=== PATIENT | female | born 1955 | race Two or more races ===

== ENCOUNTER 2016-06-02 02:18 | Emergency (ER) | payer MEDICAID ==
[2016-06-02] MEDS ORDERED: ACETAMINOPHEN 325 MG TABLET PO ONE (04:33)
--- NOTE | 2016-06-02 06:31 | ER Document Report ---
ED Cardiac - General Mode of Arrival: Ambulatory Information source: Patient, Relative TRAVEL OUTSIDE OF THE [place] IN LAST 30 DAYS: No - HPI Patient complains to provider of: Chest pain Associated symptoms: Other - See above <BELL ASKEW - Last Filed: 06/02/16 07:18> <BETHLOGAN EnriquezDAVID - Last Filed: 06/02/16 09:26> - General Chief Complaint: Chest Pain > 30 Stated Complaint: chest pain Notes: Patient is a 60 year old Citizen Of [place] speaking female, with a past medical history including HTN, who presents to the emergency department via EMS complaining of chest pain. Daughter at bedside is translating. Per daughter, patient woke up around 0000 this morning with chest pain, numbness in her left hand, headache, blurry vision, and shortness of breath. Patient pulled her alarm chow, got out of bed and began walking when she "passed out". Patient's daughter reports patient woke up and saw no one was there and began walking to the door when she "passed out" again, a neighbor woke up to the alarm and called EMS. Patient reports this has happened 2x since she moved to the area about a year ago and has occurred previous to that as well. Patient has not been seen by a doctor for these episodes and states that this morning was much worse than the others. Patient states she has a family history of heart problems, her mother, grandmother, and father all had heart attacks and her brother had bypass surgery at around age 60. Patient reports she has not had any anxiety issues in the past. PCP: Dr. Baeza (BELL ASKEW) - Related Data Allergies/Adverse Reactions: No Known Allergies Allergy (Unverified 06/02/16 02:37) Past Medical History - General Information source: Patient - Social History Smoking Status: Never Smoker Frequency of alcohol use: None Drug Abuse: None Family History: Reviewed & Not Pertinent, CAD Patient has suicidal ideation: No Patient has homicidal ideation: No - Past Medical History Cardiac Medical History: Reports: Hx Hypertension Renal/ Medical History: Denies: Hx Peritoneal Dialysis GI Medical History: Reports: Hx Gastroesophageal Reflux Disease Past Surgical History: Reports: Hx Orthopedic Surgery - R hand and arm - Immunizations Hx Diphtheria, Pertussis, Tetanus Vaccination: No <BELL ASKEW - Last Filed: 06/02/16 07:18> Review of Systems - Review of Systems Constitutional: No symptoms reported EENT: See HPI, Blurred vision Cardiovascular: See HPI, Chest pain, Syncope Respiratory: See HPI, Short of breath Gastrointestinal: No symptoms reported Genitourinary: No symptoms reported Female Genitourinary: No symptoms reported Musculoskeletal: No symptoms reported Skin: No symptoms reported Hematologic/Lymphatic: No symptoms reported Neurological/Psychological: See HPI, Headaches, Numbness -: Yes All other systems reviewed and negative <BELL ASKEW - Last Filed: 06/02/16 07:18> Physical Exam - Vital signs Interpretation: Normal - General General appearance: Appears well, Alert, Anxious - HEENT Head: Normocephalic, Atraumatic Eyes: Normal Ears: Normal External canal: Normal Tympanic membrane: Normal Pharynx: Normal Neck: Supple. No: Carotid bruit - Respiratory Respiratory status: No respiratory distress Chest status: Nontender Breath sounds: Normal Chest palpation: Normal - Cardiovascular Rhythm: Regular Heart sounds: Normal auscultation Murmur: No - Abdominal Inspection: Obese Distension: No distension Bowel sounds: Normal Tenderness: Nontender Organomegaly: No organomegaly - Back Back: Normal, Nontender - Extremities General upper extremity: Normal inspection, Normal ROM, Normal strength. No: Edema General lower extremity: Normal inspection, Normal ROM, Normal strength. No: Edema - Neurological Neuro grossly intact: Yes Cognition: Normal Orientation: AAOx4 [place] Coma Scale Eye Opening: Spontaneous [place] Coma Scale Verbal: Oriented [place] Coma Scale Motor: Obeys Commands [place] Coma Scale Total: 15 Speech: Normal Motor strength normal: LUE, RUE, LLE, RLE - Psychological Associated symptoms: Normal affect, Anxious - Skin Skin Temperature: Warm Skin Moisture: Dry Skin Color: Normal <BELL ASKEW - Last Filed: 06/02/16 07:18> Course <BELL ASKEW - Last Filed: 06/02/16 07:18> - Laboratory Result Diagrams: 06/02/16 07:32 06/02/16 07:32 - EKG Interpretation by [facility] EKG shows normal: Sinus rhythm, [place], Intervals, QRS Complexes. abnormal: ST-T Waves - Borderline 20 abnormalities in anterior leads Rate: Normal - 68 Rhythm: NSR When compared to previous EKG there are: Previous EKG unavailable <DAVID CAMPOS - Last Filed: 06/02/16 09:26> - Re-evaluation Re-evalutation: 06/02/16 08:39 The patient's daughter reported that the Tylenol has worn off and her headache is beginning to return. She wants that if the patient does not receive some Motrin soon, the headache is going to get much worse as this is the pattern. ( DAVID CAMPOS) - Vital Signs Vital signs: Temp Pulse Resp BP Pulse Ox 97.5 F 62 20 148/84 H 97 06/02/16 08:35 06/02/16 08:35 06/02/16 04:30 06/02/16 08:35 06/02/16 08:35 (BELL ASKEW) (DAVID CAMPOS) - Laboratory Laboratory results interpreted by me: 06/02/16 06/02/16 07:32 07:32 RDW 14.3 H Cholesterol 206.16 H Discharge <BELL ASKEW - Last Filed: 06/02/16 07:18> <DAVID CAMPOS - Last Filed: 06/02/16 09:26> - Discharge Clinical Impression: Palpitations, Blurred vision, Anxiety Chest pain Qualifiers: Chest pain type: unspecified Qualified Code(s): R07.9 - Chest pain, unspecified Headache Qualifiers: Headache type: unspecified Headache chronicity pattern: acute headache Intractability: not intractable Qualified Code(s): R51 - Headache Condition: Stable Disposition: HOME, SELF-CARE Additional Instructions: Chest Pain of Unclear Cause: The exact cause of your chest pain isn't clear. Fortunately, there is no evidence of a dangerous medical condition. Further testing may be required to find the source of the pain. Most often, we find that this pain is coming from the chest wall -- the muscles or rib joints in the chest. But chest pain can come from the lung and lung lining, the esophagus, the heart valves or heart lining, and even the stomach or gallbladder. Rest. Eat lightly until the pain is gone. We may prescribe medicine for pain and inflammation. You should call the physician immediately if the pain radiates to the shoulder, jaw or arms; if you start to run a fever or develop a cough; or if you develop shortness of breath, or other new or alarming symptoms.I personally performed the services described in the documentation, reviewed and edited the documentation which was dictated to the scribe in my presence, and it accurately records my words and actions. Palpitations (Irregular/Rapid Heartrate): Irregular or rapid heartbeat is called "palpitation." To diagnose the cause of palpitation, we have to "catch it in the act" with an EKG. Sinus Tachycardia: This is a rapid (but NORMAL) rhythm that can be due to fever, pain, anxiety, lack of sleep, over-exertion, or drugs. Cold medications, caffeine, and diet pills are particularly likely to cause tachycardia. Usually , all that's required is rest, reassurance, and avoiding caffeine, alcohol, nicotine, and unnecessary medicines. Paroxysmal Atrial Tachycardia (PAT): This abnormally rapid heartbeat is caused by a "short circuit" in the electrical system of the heart. It is not dangerous, unless other heart disease is present. These attacks of PAT may occur occasionally for years. Medication is available for treatment. Paroxysmal Atrial Fibrillation or Atrial Flutter: This is irregular electrical activity in the upper heart chamber. These abnormal rhythms often occur with valve disease or in hearts damaged by hardening of the arteries. These rhythms usually require further testing, for example a cardiac echo. Premature Beats: Extra beats occur more commonly after caffeine, nicotine , alcohol, cold pills, diet pills. Emotional stress or fatigue also provoke them. Extra beats are only dangerous when heart disease is present. They usually need no treatment. If they're frequent, or if evidence of heart disease develops, medication can be given to suppress them. If we were unable to "catch" the palpitations on EKG, you should try to get an EKG immediately if the symptoms begin again. Contact the physician at once if you develop persistent lightheadedness, shortness of breath, chest pain , or swelling of the ankles. Headache: The physician does not feel that the headache you are experiencing has a serious underlying cause. Most headaches are due to emotional stress, with resultant muscle tension (tension headache). Occasionally, headaches are secondary to changes in the blood vessels of the scalp (vascular headache and migraine headache). Sometimes, a headache is the first symptom of another developing illness, such as a viral infection. You have no evidence of stroke, bleeding, meningitis, or other serious cause of your headache. The treatment of headaches varies with the severity and cause of the pain. Not all headaches need pain shots. In fact, there is evidence that using narcotics for headaches may make them worse in the long run. The physician will determine the therapy that's in your best interest. If you develop a fever, if the headache is different from any you've previously experienced, or if the headache progressively worsens, then call your physician at once or go to the emergency room. Anxiety: The physician feels that some of your health problems are being caused by anxiety. Anxiety affects your health in many ways. Anxiety alone can cause palpitations, sweats, chest pains, abdominal pains, shortness of breath, and headaches. It contributes to ulcer disease, high blood pressure, irritable bowel syndrome, and has been shown to cause flare-ups of many other diseases. Anxiety is not a simple disorder to treat. If the anxiety is due to recent life stresses, you may simply need time to "work through" the changes. If the anxiety is due to an underlying unhappiness with yourself or due to psychiatric disturbance, professional help will be needed. Your physician can refer you for further help if needed. Anti-anxiety medication is occasionally given if the stress is acute or if you are having trouble sleeping. Chronic or frequent use of these medications is not a good idea because the body becomes reliant on it, preventing you from dealing with life's normal stresses. THERE IS NO CLEAR EXPLANATION FOR YOUR CHEST PAIN, BUT THE EKG IS NORMAL AND THE HEART ENZYMES ARE NORMAL. YOUR CHOLESTEROL IS BORDERLINE ELEVATED. TAKE TYLENOL AND MOTRIN FOR YOUR HEADACHE TODAY IF NEEDED. REST TODAY. BE SURE TO TAKE ALL OF YOUR REGULAR MEDICATIONS TODAY. FOLLOW UP WITH DR. BAEZA TOMORROW FOR RECHECK. RETURN TO THE EMERGENCY ROOM IF ANY NEW OR WORSENING SYMPTOMS. Referrals: SHARRI BAEZA MD [Primary Care Provider] - 06/03/16 Scribe Attestation: 06/02/16 09:26 I personally performed the services described in the documentation, reviewed and edited the documentation which was dictated to the scribe in my presence, and it accurately records my words and actions. (DAVID CAMPOS) Scribe Documentation - Scribe Written by Betsey:: betsey Szymanski, 06/02/16, 0702 acting as scribe for :: Beth <BELL ASKEW - Last Filed: 06/02/16 07:18>
[2016-06-02 07:56] LABS: ABSOLUTE MONOCYTES (AUTO) 0.4 10^3/uL (0.1-1.4); ABSOLUTE NEUT (AUTO) 3.9 10^3/uL (1.7-8.2); BASOPHILS % (AUTO) 0.5 % (0-2); EOSINOPHILS % (AUTO) 0.6 % (0-6); HEMATOCRIT 40.1 % (36.0-47.0); HEMOGLOBIN 13.1 g/dL (12.0-15.5); HGB HCT DIFFERENCE -0.8; LYMPHOCYTES % (AUTO) 31.7 % (13-45); MEAN CORPUSCULAR HEMOGLOBIN 27.8 pg (27.0-33.4); MEAN CORPUSCULAR HGB CONC 32.7 g/dL (32.0-36.0); MEAN CORPUSCULAR VOLUME 85 fl (80-97); RED BLOOD COUNT 4.72 10^6/uL (3.72-5.28); RED CELL DISTRIBUTION WIDTH 14.3 % (11.5-14.0); SEGMENTED NEUTROPHILS % (AUTO) 60.2 % (42-78); WHITE BLOOD COUNT 6.4 10^3/uL (4.0-10.5)
[2016-06-02 08:14] LABS: ALANINE AMINOTRANSFERASE 41 U/L (9-52); ALKALINE PHOSPHATASE 112 U/L (38-126); ANION GAP 12 (5-19); ASPARTATE AMINO TRANSFERASE 35 U/L (14-36); BILIRUBIN,TOTAL 0.5 mg/dL (0.2-1.3); BLOOD UREA NITROGEN 15 mg/dL (7-20); CALCIUM 9.5 mg/dL (8.4-10.2); CARBON DIOXIDE 27 mmol/L (22-30); CHLORIDE 104 mmol/L (98-107); CHOLESTEROL 206.16 mg/dL (0-200); CREATINE KINASE 60 U/L (30-135); GLUCOSE 106 mg/dL (75-110); POTASSIUM 4.3 mmol/L (3.6-5.0); SODIUM 143.1 mmol/L (137-145); TOTAL PROTEIN 7.4 g/dL (6.3-8.2); TRIGLYCERIDES 134 mg/dL (<150)
[2016-06-02 08:22] LABS: CREATINE KINASE MB 0.48 ng/mL (<4.55)
[2016-06-02 08:28] LABS: TROPONIN I < 0.012 ng/mL
[2016-06-02 08:36] VITALS: BP 148/84
[2016-06-02] MEDS ORDERED: IBUPROFEN 800 MG TABLET PO ONE (08:38)
--- NOTE | 2016-06-02 10:05 | EKG REPORT ---
SEVERITY:- BORDERLINE ECG - SINUS RHYTHM BORDERLINE T ABNORMALITIES, ANTERIOR LEADS : Confirmed by: Fabian Segura MD 02-Jun-2016 10:05:15
== END 2016-06-02 09:35 | disposition home or self-care (01) ==
LOC: ER 02:18
DX: R07.9 Chest pain, unspecified (principal); F41.9 Anxiety disorder, unspecified; R00.2 Palpitations; R51 Headache; I10 Essential (primary) hypertension; I20.0 Unstable angina; H53.8 Other visual disturbances; R06.02 Shortness of breath; R55 Syncope and collapse; Z82.49 Family history of ischemic heart disease and other diseases of the circulatory system
CPT/HCPCS: 93005; 99284; 36415; 82553; 82465; 82550; 84478; 85025; 80053; 84484; 71020; 93010; J3490

== ENCOUNTER 2016-06-05 02:33 | Inpatient (IN) | payer MEDICAID ==
[2016-06-05] MEDS ORDERED: ASPIRIN 81 MG TABLET, CHEWABLE PO ONE (04:07)
--- NOTE | 2016-06-05 04:07 | ER Document Report ---
ED Cardiac - General Chief Complaint: Chest Pain Stated Complaint: CHEST PAIN Mode of Arrival: Ambulatory Information source: Patient, Relative Notes: Patient is a 60-year-old female who presents to the ER today for the second time in 3 days being evaluated here for chest pain, palpitations with shortness of breath that happened intermittently, approximately 4-5 times recently with nausea, headache, blurred vision and then apparently short syncopal episodes that are witnessed by family usually. Patient states that her headache starts in the back of her head and slowly moves up her scalp and involves her entire head. She also states that her blood pressure has been high. She denies any history of heart attack or stroke although she does have family history of both. She states that this time she is still having some mild chest discomfort and dizziness. Patient's daughter is translating for her at bedside. TRAVEL OUTSIDE OF THE [place] IN LAST 30 DAYS: No - Related Data Allergies/Adverse Reactions: No Known Allergies Allergy (Unverified 06/02/16 02:37) Past Medical History - General Information source: Patient, Relative - Social History Smoking Status: Unknown if Ever Smoked Drug Abuse: None Family History: Reviewed & Not Pertinent, CAD Patient has suicidal ideation: No Patient has homicidal ideation: No - Past Medical History Cardiac Medical History: Reports: Hx Hypertension Renal/ Medical History: Denies: Hx Peritoneal Dialysis GI Medical History: Reports: Hx Gastroesophageal Reflux Disease Past Surgical History: Reports: Hx Orthopedic Surgery - R hand and arm - Immunizations Hx Diphtheria, Pertussis, Tetanus Vaccination: No Review of Systems - Review of Systems Constitutional: No symptoms reported EENT: No symptoms reported Cardiovascular: See HPI Respiratory: See HPI Gastrointestinal: See HPI Genitourinary: No symptoms reported Female Genitourinary: No symptoms reported Musculoskeletal: No symptoms reported Skin: No symptoms reported Hematologic/Lymphatic: No symptoms reported Neurological/Psychological: See HPI Physical Exam - Vital signs Vitals: Temp Pulse Resp BP Pulse Ox 97.9 F 87 20 178/103 H 96 06/05/16 02:51 06/05/16 02:51 06/05/16 02:51 06/05/16 02:51 06/05/16 02:51 - Notes Notes: PHYSICAL EXAMINATION: GENERAL: Appears tired, otherwise in no acute distress. HEAD: Atraumatic, normocephalic. EYES: Pupils equal round and reactive to light, extraocular movements intact, sclera anicteric, conjunctiva are normal. NECK: Normal range of motion, supple without lymphadenopathy LUNGS: CTAB and equal. No wheezes rales or rhonchi. HEART/CHEST: tender to palpation over left chest slightly, Regular rate and rhythm without murmurs ABDOMEN: Soft, no tenderness. No guarding, no rebound BACK: no vertebral tenderness, normal ROM GI/: no CVA tenderness EXTREMITIES: Normal range of motion, no pitting edema. No cyanosis. NEUROLOGICAL: Cranial nerves grossly intact. Normal sensory/motor exams. Good and equal strength bilaterally, Kernig and Brudzinski's signs negative, normal heel to horta testing PSYCH: Normal mood, normal affect. SKIN: Warm, Dry, normal turgor, no rashes or lesions noted Course - Re-evaluation Re-evalutation: 06/05/16 05:22 Cardiac workup is negative today including an EKG with no changes from previous EKG, normal sinus rhythm at a rate of 76 bpm, normal cardiac enzymes, normal chest x-ray without evidence of abnormality. CAT scan of the head was also negative for any acute pathology. Patient's blood pressure did reduce to 141/ 85 after coming here without his having to give her any medication. Patient has been seen here now twice in the last 3 days for the same issue. She has never had a stress test. At this time Dr. Álvarez was consulted and agrees that she needs a cardiac rule out. Dr. Galindo agrees to admit for observation. 06/05/16 06:04 06/05/16 06:05 - Vital Signs Vital signs: Temp Pulse Resp BP Pulse Ox 98 F 87 20 159/86 H 97 06/05/16 07:01 06/05/16 02:51 06/05/16 07:01 06/05/16 07:01 06/05/16 07:01 - Laboratory Result Diagrams: 06/05/16 03:14 06/05/16 03:14 Laboratory results interpreted by me: 06/05/16 06/05/16 03:14 03:14 RDW 14.5 H BUN 21 H Glucose 111 H AST 55 H ALT 59 H Discharge - Discharge Clinical Impression: Palpitations, Syncope and collapse Chest pain Qualifiers: Chest pain type: unspecified Qualified Code(s): R07.9 - Chest pain, unspecified Condition: Stable Disposition: ADMITTED OBSERVATION Admitting Provider: Josie Unit Admitted: Telemetry
[2016-06-05 04:19] LABS: ABSOLUTE EOSINOPHILS # (AUTO) 0.1 10^3/uL (0.0-0.6); ABSOLUTE MONOCYTES (AUTO) 0.6 10^3/uL (0.1-1.4); ABSOLUTE NEUT (AUTO) 4.7 10^3/uL (1.7-8.2); BASOPHILS % (AUTO) 0.4 % (0-2); HEMATOCRIT 39.4 % (36.0-47.0); HEMOGLOBIN 12.7 g/dL (12.0-15.5); HGB HCT DIFFERENCE -1.3; LYMPHOCYTES % (AUTO) 27.2 % (13-45); MEAN CORPUSCULAR HEMOGLOBIN 27.6 pg (27.0-33.4); MEAN CORPUSCULAR HGB CONC 32.1 g/dL (32.0-36.0); MEAN CORPUSCULAR VOLUME 86 fl (80-97); MONOCYTES % (AUTO) 7.7 % (3-13); RED BLOOD COUNT 4.58 10^6/uL (3.72-5.28); RED CELL DISTRIBUTION WIDTH 14.5 % (11.5-14.0); SEGMENTED NEUTROPHILS % (AUTO) 63.7 % (42-78); WHITE BLOOD COUNT 7.4 10^3/uL (4.0-10.5)
[2016-06-05 04:20] LABS: ALANINE AMINOTRANSFERASE 59 U/L (9-52); ALBUMIN 4.5 g/dL (3.5-5.0); ALKALINE PHOSPHATASE 109 U/L (38-126); ANION GAP 13 (5-19); ASPARTATE AMINO TRANSFERASE 55 U/L (14-36); BILIRUBIN,TOTAL 0.6 mg/dL (0.2-1.3); BLOOD UREA NITROGEN 21 mg/dL (7-20); CALCIUM 9.7 mg/dL (8.4-10.2); CARBON DIOXIDE 24 mmol/L (22-30); CHLORIDE 105 mmol/L (98-107); CREATINE KINASE 105 U/L (30-135); CREATININE RESULT 0.79 mg/dL (0.52-1.25); GLUCOSE 111 mg/dL (75-110); LIPASE 119.7 U/L (23-300); POTASSIUM 4.6 mmol/L (3.6-5.0); SODIUM 142.2 mmol/L (137-145); TOTAL PROTEIN 7.6 g/dL (6.3-8.2)
[2016-06-05] MEDS ORDERED: PROMETHAZINE HCL 25 MG TABLET PO ONE (04:29)
[2016-06-05 04:31] LABS: CREATINE KINASE MB 0.95 ng/mL (<4.55); TROPONIN I < 0.012 ng/mL
[2016-06-05 04:58] LABS: APPEARANCE,URINE CLEAR; BILIRUBIN,URINE NEGATIVE (NEGATIVE); GLUCOSE, URINE NEGATIVE (NEGATIVE); KETONES,URINE NEGATIVE (NEGATIVE); LEUKOCYTE ESTERASE,URINE NEGATIVE (NEGATIVE); NITRITE,URINE NEGATIVE (NEGATIVE); PROTEIN,URINE NEGATIVE (NEGATIVE); URINE SPECIFIC GRAVITY 1.003; UROBILINOGEN,URINE NEGATIVE mg/dL (<2.0)
[2016-06-05] MEDS ORDERED: NORMAL SALINE 1000 ML 1,000 ML IV PRN (07:58)
[2016-06-05] MEDS ORDERED: LANSOPRAZOLE 30 MG TAB.RAP.DR PO ONE (09:00)
[2016-06-05] MEDS: ACETAMINOPHEN 325 MG TABLET PO PRN ×2 (09:49→17:25)
[2016-06-05] MEDS: AMLODIPINE BESYLATE 5 MG TABLET PO SCH (09:49)
[2016-06-05] MEDS: LANSOPRAZOLE 30 MG TAB.RAP.DR PO SCH (09:52)
[2016-06-05] MEDS: NORMAL SALINE 1000 ML 1,000 ML IV PRN (09:52)
[2016-06-05 09:58] LABS: PARTIAL THROMBOPLASTIN TIME 32.8 SEC (23.5-35.8)
[2016-06-05 10:19] LABS: CREATINE KINASE MB 0.52 ng/mL (<4.55); TROPONIN I < 0.012 ng/mL
[2016-06-05] MEDS ORDERED: ENOXAPARIN SODIUM INJ 40 MG/0.4 ML DISP.SYRIN SUBCUT ONE (11:00)
--- NOTE | 2016-06-05 11:22 | PDOC H&P ---
History of Present Illness Admission Date/PCP: 06/05/16 08:48 SHARRI FELISHA Patient complains of: Passing out, chest pain History of Present Illness: MAXIMO MACIEL is a 60 year old female presented to ED with complaint of chest pain with palpitation, preceding headache and eventually passing out. Her last event of passing out occurred while patient was in the registration area of the ED. These is her third visit to our ED with reported passing out episode. Her last event at the ED was witnessed by nursing staff. Patient denied any associated diaphoresis but reported preceding felling of blurry vision, headache , dizziness, and nausea but no vomiting. She described headache as starting from the back of her head and spread frontally. She admitted to similar episodes outside of the hospital. Daughter at bedside denied any associated seizure like movement with episodes of syncope. Patient denied any history of stroke or heart attack, alcohol intake, illicit drug usage, or cigarette smoking. Patient's daughter is translating for her at bedside. Past Medical History Cardiac Medical History: Reports: Hypertension GI Medical History: Reports: Gastroesophageal Reflux Disease Past Surgical History Past Surgical History: Reports: Orthopedic Surgery - R hand and arm Social History Smoking Status: Unknown if Ever Smoked - Advance Directive Resuscitation Status: Full Code Family History Family History: Reviewed & Not Pertinent, CAD Parental Family History Reviewed: Yes Children Family History Reviewed: Yes Sibling(s) Family History Reviewed.: Yes Medication/Allergy Allergies/Adverse Reactions: No Known Allergies Allergy (Unverified 06/02/16 02:37) Review of Systems Constitutional: PRESENT: headache(s). ABSENT: as per HPI, anorexia, chills, fatigue, fever(s), night sweats, weakness, weight gain, weight loss, other Eyes: PRESENT: visual disturbances - with blurry feeling prior to passing out Ears: ABSENT: as per HPI, hearing changes, other Nose, Mouth, and Throat: ABSENT: as per HPI, headache(s), mouth pain, sore throat, vertigo, other Cardiovascular: PRESENT: chest pain, dyspnea on exertion, palpitations Respiratory: PRESENT: dyspnea. ABSENT: as per HPI, cough, hemoptysis, sputum, other Gastrointestinal: PRESENT: nausea. ABSENT: as per HPI, abdominal pain, bloating , coffee ground emesis, constipation, diarrhea, dysphagia, heartburn, hematemesis, hematochezia, melena, vomiting, other Genitourinary: ABSENT: as per HPI, difficulty urinating, dysuria, hematuria, nocturia, other Musculoskeletal: ABSENT: as per HPI, back pain, deformity, joint swelling, muscle weakness, other Integumentary: ABSENT: as per HPI, diaphoresis, erythema, lesions, pruritus, rash, wounds, other Neurological: PRESENT: dizziness, syncope. ABSENT: as per HPI, abnormal gait, abnormal movements, abnormal speech, confusion, convulsions, focal weakness, frequent falls, lack of coordination, memory loss, numbness, paresthesias, restless legs, tingling, tremor(s), vertigo, weakness, other Psychiatric: ABSENT: anxiety, depression, homidical ideation, suicidal ideation Endocrine: ABSENT: cold intolerance, heat intolerance, menstrual abnormalities, polydipsia, polyuria Hematologic/Lymphatic: ABSENT: easy bleeding, easy bruising, lymphadenopathy Physical Exam Vital Signs: Temp Pulse Resp BP Pulse Ox 98 F 87 20 159/86 H 97 06/05/16 07:01 06/05/16 02:51 06/05/16 07:01 06/05/16 07:01 06/05/16 07:01 Intake & Output 06/04/16 06/05/16 06/06/16 06:59 06:59 06:59 Output Total 200 Balance -200 Weight 99.337 kg General appearance: PRESENT: no acute distress, obese Head exam: PRESENT: atraumatic, normocephalic Eye exam: PRESENT: conjunctiva pink, EOMI, PERRLA Ear exam: ABSENT: bleeding, drainage, normal external ear exam, TM's normal bilaterally, other Mouth exam: ABSENT: dry mucosa, laceration, moist, neck supple, tongue midline, other Teeth exam: ABSENT: dental caries, dental tenderness, edentulous, poor dentation , other Throat exam: ABSENT: post pharyngeal erythema, tonsillar erythema, tonsillar exudate, tonsillogmegaly, other Neck exam: ABSENT: carotid bruit, full ROM, JVD, lymphadenopathy, meningismus, tenderness, thyromegaly, tracheal deviation, tracheostomy, other Respiratory exam: ABSENT: accessory muscle use, chest wall tenderness, clear to auscultation glenda, crackles, decreased breath sounds, prolonged expiratory phas, rales, retraction, rhonchi, stridor, symmetrical, tachypnea, unlabored, wheezes , other Cardiovascular exam: PRESENT: RRR. ABSENT: diastolic murmur, rubs, systolic murmur Pulses: PRESENT: normal dorsalis pedis pul, +2 pedal pulses bilateral Vascular exam: PRESENT: normal capillary refill GI/Abdominal exam: PRESENT: normal bowel sounds, soft. ABSENT: distended, guarding, mass, organolmegaly, rebound, tenderness Extremities exam: PRESENT: full ROM Musculoskeletal exam: PRESENT: full ROM, normal inspection Neurological exam: PRESENT: alert, awake, oriented to person, oriented to place , oriented to time, oriented to situation, CN II-XII grossly intact. ABSENT: motor sensory deficit Psychiatric exam: PRESENT: appropriate affect, normal mood. ABSENT: homicidal ideation, suicidal ideation Results Laboratory Results: 06/05/16 06/05/16 09:35 09:35 Creatine Kinase 74 CK-MB (CK-2) 0.52 Troponin I < 0.012 Impressions: Chest X-Ray 06/05/16 04:06 IMPRESSION: NO ACUTE RADIOGRAPHIC FINDING IN THE CHEST. Head CT 06/05/16 04:49 IMPRESSION: NORMAL BRAIN CT WITHOUT CONTRAST. Assessment & Plan - Diagnosis (1) Malignant essential hypertension Is this a current diagnosis for this admission?: YesPlan: see admitting physician orders (2) Chest pain Qualifiers: Chest pain type: unspecified Qualified Code(s): R07.9 - Chest pain, unspecified Is this a current diagnosis for this admission?: YesPlan: see admitting physician orders (3) Syncope and collapse Is this a current diagnosis for this admission?: YesPlan: see admitting physician orders - Time Time Spent: 50 to 70 Minutes Medications reviewed and adjusted accordingly: Yes Anticipated discharge: Home - Inpatient Certification Based on my medical assessment, after consideration of the patient's comorbidities, presenting symptoms, or acuity I expect that the services needed warrant INPATIENT care.: Yes I certify that my determination is in accordance with my understanding of Medicare's requirements for reasonable and necessary INPATIENT services [42 CFR 412.3e].: Yes Medical Necessity: Significant Comorbidiites Make Outpatient Treatment Too Risky , Need For Continuous Telemetry Monitoring, Risk of Complication if Not Cared For in Hospital Post Hospital Care: D/C Drive Worker Documentation - Plan Summary Plan Summary: see admitting physician orders
--- NOTE | 2016-06-05 14:58 | EKG REPORT ---
SEVERITY:- BORDERLINE ECG - SINUS RHYTHM BORDERLINE T ABNORMALITIES, ANTERIOR LEADS : Confirmed by: Teresita Dotson MD 05-Jun-2016 14:58:01
[2016-06-05 16:43] LABS: CREATINE KINASE MB 0.42 ng/mL (<4.55)
[2016-06-05 16:48] LABS: TROPONIN I < 0.012 ng/mL
[2016-06-05] MEDS ORDERED: ACETAMINOPHEN 325 MG TABLET ONE (17:23)
[2016-06-05] MEDS ORDERED: VALSARTAN 160 MG TABLET PO ONE (17:45)
--- NOTE | 2016-06-05 21:04 | XCELERA REPORT ---
[address] [address] Transthoracic Echocardiogram Report Name: MAXIMO MACIEL Age: 60 yrs Gender: Female : 1955 Patient Status: Inpatient Patient Location: \S\39\S\A Study Date: 06/05/2016 02:38 PM Height: 65 in Weight: 219 lb BSA: 2.1 m2 Procedure: A two-dimensional transthoracic echocardiogram with color flow and Doppler was performed. Study Quality: Fair. Reason For Study: SYNCOPE / CHESTPAIN History: SYNCOPE / CHESTPAIN. Ordering Physician: SHARRI BAEZA Performed By: Dai Fields Interpretation Summary The left ventricle is normal in size. There is normal left ventricular wall thickness. Left ventricular systolic function is normal. LV EF is > THAN 65% The right ventricle is normal in size and function. The left atrial size is normal. The interatrial septum is intact with no evidence for an atrial septal defect. There is no evidence of mitral valve prolapse. There is no mitral valve stenosis. There is a mild amount of mitral regurgitation There is no aortic valve stenosis There is no LVOT obstruction. No aortic regurgitation is present. There is no tricuspid stenosis. There is a trace to mild amount of tricuspid regurgitation There is mild pulmonary hypertension by echo RVSP is 32 TO 37mm OF Hg , with ra mean of 5 to 10. There is no pericardial effusion. MMode/2D Measurements \T\ Calculations RVDd: 3.3 cm LVIDd: 5.1 cm FS: 36.9 % Ao root diam: 2.4 cm IVSd: 0.87 cm LVIDs: 3.2 cm EDV(Teich): 125.9 ml LVPWd: 0.85 cm ESV(Teich): 42.2 ml Ao root area: 4.6 cm2 EF(Teich): 66.5 % LA dimension: 3.9 cm Doppler Measurements \T\ Calculations MV E max leeanna: MV P1/2t max leeanna: Ao V2 max: LV V1 max P.4 cm/sec 85.4 cm/sec 142.8 cm/sec 4.4 mmHg MV A max leeanna: MV P1/2t: 71.6 msec Ao max PG: LV V1 max: 74.0 cm/sec 8.2 mmHg 104.6 cm/sec MV E/A: 1.2 MVA(P1/2t): 3.1 cm2 MV dec slope: 349.4 cm/sec2 MV dec time: 0.23 sec PA V2 max: PI end-d leeanna: TR max leeanna: 80.9 cm/sec 97.0 cm/sec 258.9 cm/sec PA max PG: TR max P.6 mmHg 26.8 mmHg Left Ventricle The left ventricle is normal in size. There is normal left ventricular wall thickness. Left ventricular systolic function is normal. LV EF is > THAN 65%. Doppler measurements suggest normal left ventricular diastolic function. The left ventricular wall motion is normal. There is no thrombus. There is no ventricular septal defect visualized. Right Ventricle The right ventricle is normal in size and function. Atria The right atrium is normal. The left atrial size is normal. The interatrial septum is intact with no evidence for an atrial septal defect. Mitral Valve There is no evidence of mitral valve prolapse. There is no vegetation seen on the mitral valve. There is no mitral valve stenosis. There is a mild amount of mitral regurgitation. Aortic Valve There is no aortic valvular vegetation. There is no aortic valve stenosis. There is no LVOT obstruction. No aortic regurgitation is present. Tricuspid Valve There is no tricuspid stenosis. There is a trace to mild amount of tricuspid regurgitation. There is mild pulmonary hypertension by echo. RVSP is 32 TO 37mm OF Hg , with ra mean of 5 to 10. Pulmonic Valve There is no pulmonic valvular stenosis. There is no pulmonic valvular regurgitation. Great Vessels The aortic root is normal size. Effusions There is no pericardial effusion. : SHARRI BAEZA > Teresita Dotson
[2016-06-05 23:11] LABS: CREATINE KINASE MB 0.31 ng/mL (<4.55)
[2016-06-05 23:16] LABS: TROPONIN I < 0.012 ng/mL
[2016-06-06] MEDS: ACETAMINOPHEN 325 MG TABLET PO PRN ×2 (05:00→19:13)
[2016-06-06 06:43] LABS: ABSOLUTE EOSINOPHILS # (AUTO) 0.1 10^3/uL (0.0-0.6); ABSOLUTE LYMPHOCYTES (AUTO) 2.7 10^3/uL (0.5-4.7); ABSOLUTE MONOCYTES (AUTO) 0.4 10^3/uL (0.1-1.4); ABSOLUTE NEUT (AUTO) 1.8 10^3/uL (1.7-8.2); BASOPHILS % (AUTO) 0.5 % (0-2); EOSINOPHILS % (AUTO) 1.2 % (0-6); HEMATOCRIT 37.3 % (36.0-47.0); HEMOGLOBIN 11.6 g/dL (12.0-15.5); HGB HCT DIFFERENCE -2.5; LYMPHOCYTES % (AUTO) 53.6 % (13-45); MEAN CORPUSCULAR HEMOGLOBIN 27.3 pg (27.0-33.4); MEAN CORPUSCULAR HGB CONC 31.1 g/dL (32.0-36.0); MEAN CORPUSCULAR VOLUME 88 fl (80-97); RED BLOOD COUNT 4.26 10^6/uL (3.72-5.28); RED CELL DISTRIBUTION WIDTH 14.3 % (11.5-14.0); SEGMENTED NEUTROPHILS % (AUTO) 36.7 % (42-78)
[2016-06-06 06:47] LABS: ALANINE AMINOTRANSFERASE 45 U/L (9-52); ALBUMIN 3.6 g/dL (3.5-5.0); ALKALINE PHOSPHATASE 100 U/L (38-126); ANION GAP 10 (5-19); ASPARTATE AMINO TRANSFERASE 36 U/L (14-36); BILIRUBIN,TOTAL 0.5 mg/dL (0.2-1.3); BLOOD UREA NITROGEN 11 mg/dL (7-20); CALCIUM 8.8 mg/dL (8.4-10.2); CARBON DIOXIDE 25 mmol/L (22-30); CHLORIDE 108 mmol/L (98-107); CHOLESTEROL 182.64 mg/dL (0-200); CREATININE RESULT 0.67 mg/dL (0.52-1.25); Direct HDL 67 mg/dL (>40); GLUCOSE 97 mg/dL (75-110); POTASSIUM 3.8 mmol/L (3.6-5.0); SODIUM 143.1 mmol/L (137-145); TOTAL PROTEIN 6.4 g/dL (6.3-8.2); TRIGLYCERIDES 132 mg/dL (<150)
[2016-06-06] MEDS ORDERED: ONDANSETRON HCL INJ/PF 4 MG/2 ML SDV ONE (06:51)
[2016-06-06 06:58] LABS: DIRECT LDL 83 mg/dL (<100)
[2016-06-06 07:25] LABS: CREATINE KINASE MB < 0.22 ng/mL (<4.55); TROPONIN I < 0.012 ng/mL
[2016-06-06] MEDS: ENOXAPARIN SODIUM INJ 40 MG/0.4 ML DISP.SYRIN SUBCUT SCH (07:35)
--- NOTE | 2016-06-06 08:11 | EEG PRO FEE REPORT ---
EEG INTERPRETATION PATIENT NAME: MAXIMO MACIEL ROOM#: [id number] ORDER#: [id number] DATE OF STUDY: 06/05/16 : 1955 REFERRING MD: SHARRI BAEZA M.D. REPORT The background activity consists of 5-6 up to 7 Hz theta throughout. It appears to be quite disorganized. No clear focal slowing, amplitude asymmetry, or epileptiform discharges are noted. Overall, it appears to be very disorganized somewhat slow EEG indicative of widespread cerebral dysfunction such as from a toxic, metabolic, or other generalized cause. INTERPRETING PHYSICIAN: ENRRIQUE JUÁREZ M.D. /: [facility] TT: [id number] ID: [id number] /: [id number] TD: [id number] JOB: [id number] cc:Dank SAMAYOA M.D. >
[2016-06-06] MEDS: LEVOTHYROXINE SODIUM 0.05 MG TABLET PO SCH (10:07)
[2016-06-06] MEDS: AMLODIPINE BESYLATE 5 MG TABLET PO SCH (10:07)
[2016-06-06] MEDS: VALSARTAN 160 MG TABLET PO SCH (10:08)
[2016-06-06] MEDS: NORMAL SALINE 1000 ML 1,000 ML IV PRN (12:40)
--- NOTE | 2016-06-06 12:56 | EKG REPORT ---
SEVERITY:- BORDERLINE ECG - SINUS RHYTHM BORDERLINE T ABNORMALITIES, ANTERIOR LEADS : Confirmed by: Teresita Dotson MD 06-Jun-2016 12:54:35
--- NOTE | 2016-06-06 18:04 | PDOC PROGRESS REPORT ---
Subjective Progress Note for:: 06/06/16 Subjective:: Patient had episode of headache, blurry vision, nausea and vomiting upon waking up this morning. There was associated headache and chest pain. Her blood pressure was elevated. Patient reported large bowel movement thereafter. No fever or chills. She denied dysuria or frequency. Physical Exam Vital Signs: Temp Pulse Resp BP Pulse Ox 97.7 F 83 18 128/69 H 96 06/06/16 04:52 06/06/16 14:00 06/06/16 04:52 06/06/16 04:52 06/06/16 04:52 Intake & Output 06/05/16 06/06/16 06/07/16 06:59 06:59 06:59 Intake Total 300 600 Output Total 400 1550 Balance -100 -950 Weight 101.7 kg General appearance: PRESENT: no acute distress, obese Head exam: PRESENT: atraumatic, normocephalic Eye exam: PRESENT: conjunctiva pink, EOMI, PERRLA Neck exam: PRESENT: full ROM. ABSENT: carotid bruit, JVD, lymphadenopathy, thyromegaly Respiratory exam: ABSENT: accessory muscle use, chest wall tenderness, clear to auscultation glenda, crackles, decreased breath sounds, prolonged expiratory phas, rales, retraction, rhonchi, stridor, symmetrical, tachypnea, unlabored, wheezes , other Cardiovascular exam: PRESENT: RRR. ABSENT: diastolic murmur, rubs, systolic murmur GI/Abdominal exam: PRESENT: normal bowel sounds, soft. ABSENT: distended, guarding, mass, organolmegaly, rebound, tenderness Extremities exam: PRESENT: full ROM Musculoskeletal exam: PRESENT: deformity - arthritis joint deformities, full ROM Neurological exam: PRESENT: alert, awake, oriented to person, oriented to place , oriented to time, oriented to situation, CN II-XII grossly intact. ABSENT: motor sensory deficit Psychiatric exam: PRESENT: appropriate affect, normal mood. ABSENT: homicidal ideation, suicidal ideation Skin exam: PRESENT: dry, intact, warm. ABSENT: cyanosis, rash Results Laboratory Results: 06/06/16 05:55 06/06/16 05:55 06/06/16 06/06/16 05:55 05:55 WBC 5.0 RBC 4.26 Hgb 11.6 L Hct 37.3 MCV 88 MCH 27.3 MCHC 31.1 L RDW 14.3 H Plt Count 185 Seg Neutrophils % 36.7 L Lymphocytes % 53.6 H Monocytes % 8.0 Eosinophils % 1.2 Basophils % 0.5 Absolute Neutrophils 1.8 Absolute Lymphocytes 2.7 Absolute Monocytes 0.4 Absolute Eosinophils 0.1 Absolute Basophils 0.0 Sodium 143.1 Potassium 3.8 Chloride 108 H Carbon Dioxide 25 Anion Gap 10 BUN 11 Creatinine 0.67 Est GFR ( Amer) > 60 Est GFR (Non-Af Amer) > 60 Glucose 97 Calcium 8.8 Total Bilirubin 0.5 AST 36 ALT 45 Alkaline Phosphatase 100 Total Protein 6.4 Albumin 3.6 Triglycerides 132 Cholesterol 182.64 LDL Cholesterol Direct 83 VLDL Cholesterol 26.0 HDL Cholesterol 67 06/05/16 06/05/16 06/05/16 09:35 09:35 15:50 Creatine Kinase 74 80 CK-MB (CK-2) 0.52 Troponin I < 0.012 06/05/16 06/05/16 06/05/16 15:50 22:15 22:15 Creatine Kinase 69 CK-MB (CK-2) 0.42 0.31 Troponin I < 0.012 < 0.012 06/06/16 06/06/16 05:55 05:55 Creatine Kinase 57 CK-MB (CK-2) < 0.22 Troponin I < 0.012 Impressions: Chest X-Ray 06/05/16 04:06 IMPRESSION: NO ACUTE RADIOGRAPHIC FINDING IN THE CHEST. Head CT 06/05/16 04:49 IMPRESSION: NORMAL BRAIN CT WITHOUT CONTRAST. Assessment & Plan - Diagnosis (1) Malignant essential hypertension Is this a current diagnosis for this admission?: YesPlan: Fairly control on Valsartan and Amlodipine therapy. I will request exercise stress test in AM. (2) Chest pain Qualifiers: Chest pain type: unspecified Qualified Code(s): R07.9 - Chest pain, unspecified Is this a current diagnosis for this admission?: YesPlan: Her serial cardiac enzymes are within normal limits. In view of her recurrent chest pain this morning we will obtain exercise cardiac stress test for further evaluation of her symptoms. (3) Syncope and collapse Is this a current diagnosis for this admission?: YesPlan: No recurrence of syncope or collapse since admission. Her EEG suggested diffuse dysfunctional process of possible toxic or metabolic origin. In view of her obese state, incident of headache, nausea, vomiting with elevated blood pressure and chest pain, i am concern about possible MARJORIE in this patient. I will request nocturnal pulse oximetry tonight. - Time Time Spent with patient: 25-34 minutes Medications reviewed and adjusted accordingly: Yes Anticipated discharge: Home Within: Other - Inpatient Certification Based on my medical assessment, after consideration of the patient's comorbidities, presenting symptoms, or acuity I expect that the services needed warrant INPATIENT care.: Yes I certify that my determination is in accordance with my understanding of Medicare's requirements for reasonable and necessary INPATIENT services [42 CFR 412.3e].: Yes Medical Necessity: Need Close Monitoring Due to Risk of Patient Decompensation, Risk of Complication if Not Cared For in Hospital Post 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
[2016-06-06] MEDS ORDERED: ONDANSETRON HCL INJ/PF 4 MG/2 ML SDV IV PRN (20:14)
[2016-06-07] MEDS: LANSOPRAZOLE 30 MG TAB.RAP.DR PO SCH (05:20)
[2016-06-07] MEDS: LEVOTHYROXINE SODIUM 0.05 MG TABLET PO SCH (05:20)
[2016-06-07] MEDS: ENOXAPARIN SODIUM INJ 40 MG/0.4 ML DISP.SYRIN SUBCUT SCH (08:26)
[2016-06-07] MEDS: ACETAMINOPHEN 325 MG TABLET PO PRN (08:26)
--- NOTE | 2016-06-07 09:42 | DRAGON STRESS TEST REPORT ---
EXERCISE TREADMILL TEST. DATE OF PROCEDURE: 06/07/2015 INDICATION: Patient with unspecified chest pain. Coronary risk factors: Hypertension, family history of [place]. Resting EKG: Sinus rhythm, no baseline ST segment changes. Stress EKG: No significant changes noted with with exercise treadmill. Reason for termination: Dyspnea and fatigue. PROCEDURE REPORT: Baseline heart rate: 68 beats per minute with blood pressure of 123/83. Patient had no significant complaints at baseline. Patient was exercised on a standard [place] protocol. Patient exercised for total of 1 minute and 54 seconds. Exercise was stopped because of patient's request to stop and patient feeling very dizzy. Patient denied any chest arm or neck discomfort during the exercise, at peak exercise or in recovery. Immediate post stopping, blood pressure was noted to be 134/82. Peak heart rate: 124 bpm, 77% of predicted maximum. Peak blood pressure: 134/82 mmHg. Double product: 13.13 Kcal Exercise EKG: Showed some baseline artifact during exercise but no significant ST segment changes noted. CONCLUSIONS: Indeterminate stress test. Recommend nuclear pharmacologic stress test and further cardiac evaluation as is needed. RECOMMENDATIONS: Recommend nuclear pharmacologic stress test and further cardiac evaluation as is needed. Aggressive risk factor modification, medical therapy. Consider cardiology consultation if clinically indicated. Meliton Jean M.D., KATHERINE Felt Washing Machine Tender hyperbaric welder diver, Board certified in cardiovascular diseases, Nuclear cardiology, Echocardiography Cardiac CT and cardiac MRI Ph. [phone] Ph. [phone] [facility]
[2016-06-07] MEDS: VALSARTAN 160 MG TABLET PO SCH (11:04)
[2016-06-07] MEDS: AMLODIPINE BESYLATE 5 MG TABLET PO SCH (11:05)
--- NOTE | 2016-06-07 15:52 | PDOC PROGRESS REPORT ---
Subjective Progress Note for:: 06/07/16 Subjective:: Patient had exercise stress test earlier today. Test was incomplete due to her request for cessation. She reported some degree of chest discomfort and palpitation after about 1 minute on the treadmill. Patient had episode of occipital region headache and blurry vision. There was recurrent episode of nausea, vomiting and elevated blood pressure since last clinical evaluation. No fever or chills. She denied any difficulty with voiding. Physical Exam Vital Signs: Temp Pulse Resp BP Pulse Ox 98.4 F 71 16 142/75 H 99 06/07/16 13:00 06/07/16 13:00 06/07/16 13:00 06/07/16 13:00 06/07/16 13:00 Pulse Oximeter Nocturnal Start: 06/06/16 08: 45 Freq: RTQ4 Status: Complete Document 06/07/16 09:47 [facility] [place] (Rec: 06/07/16 09:47 [facility] [place] [email or web address]) Nocturnal Pulse Oximetry Equipment Usage Equipment Discontinued Continuous SpO2 Machine # N 3 Intake & Output 06/06/16 06/07/16 06/08/16 06:59 06:59 06:59 Intake Total 300 2450 Output Total 400 3050 Balance -100 -600 Weight 101.7 kg 101.7 kg Physical Exam: General appearance: PRESENT: no acute distress, obese Head exam: PRESENT: atraumatic, normocephalic Eye exam: PRESENT: conjunctiva pink, EOMI, PERRLA Neck exam: PRESENT: full ROM. ABSENT: carotid bruit, JVD, lymphadenopathy, thyromegaly Respiratory exam: ABSENT: accessory muscle use, chest wall tenderness, clear to auscultation glenda, crackles, decreased breath sounds, prolonged expiratory phase , rales, retraction, rhonchi, stridor, symmetrical, tachypnea, unlabored, wheezes, other Cardiovascular exam: PRESENT: RRR. ABSENT: diastolic murmur, rubs, systolic murmur GI/Abdominal exam: PRESENT: normal bowel sounds, soft. ABSENT: distended, guarding, mass, organolmegaly, rebound, tenderness Extremities exam: PRESENT: full ROM Musculoskeletal exam: PRESENT: deformity - arthritis joint deformities, full ROM Neurological exam: PRESENT: alert, awake, oriented to person, oriented to place , oriented to time, oriented to situation, CN II-XII grossly intact. ABSENT: motor sensory deficit Psychiatric exam: PRESENT: appropriate affect, normal mood. ABSENT: homicidal ideation, suicidal ideation Skin exam: PRESENT: dry, intact, warm. ABSENT: cyanosis, rash Results Laboratory Results: 06/06/16 05:55 06/06/16 05:55 06/05/16 06/05/16 06/05/16 09:35 09:35 15:50 Creatine Kinase 74 80 CK-MB (CK-2) 0.52 Troponin I < 0.012 06/05/16 06/05/16 06/05/16 15:50 22:15 22:15 Creatine Kinase 69 CK-MB (CK-2) 0.42 0.31 Troponin I < 0.012 < 0.012 06/06/16 06/06/16 05:55 05:55 Creatine Kinase 57 CK-MB (CK-2) < 0.22 Troponin I < 0.012 Impressions: Chest X-Ray 06/05/16 04:06 IMPRESSION: NO ACUTE RADIOGRAPHIC FINDING IN THE CHEST. Head CT 06/05/16 04:49 IMPRESSION: NORMAL BRAIN CT WITHOUT CONTRAST. Assessment & Plan - Diagnosis (1) Malignant essential hypertension Is this a current diagnosis for this admission?: YesPlan: Fairly control on Valsartan and Amlodipine therapy. Exercise stress test was inconclusive with steam shovelman recommendation of pharmaceutical stress test and optimization of her co-morbidities risk. (2) Chest pain Qualifiers: Chest pain type: unspecified Qualified Code(s): R07.9 - Chest pain, unspecified Is this a current diagnosis for this admission?: YesPlan: We will arrange for pharmaceutical stress test in the next 72 hours. She will continue her on all current medication management. (3) Syncope and collapse Is this a current diagnosis for this admission?: YesPlan: No recurrence of syncope or collapse since admission. Her EEG suggested diffuse dysfunctional process of possible toxic or metabolic origin. In view of her obese state, incident of headache, nausea, vomiting with elevated blood pressure and chest pain. Awaiting review of her nocturnal pulse oximetry. 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
[2016-06-08] MEDS: ACETAMINOPHEN 325 MG TABLET PO PRN (05:18)
[2016-06-08] MEDS: LANSOPRAZOLE 30 MG TAB.RAP.DR PO SCH (06:30)
[2016-06-08] MEDS: LEVOTHYROXINE SODIUM 0.05 MG TABLET PO SCH (06:30)
[2016-06-08] MEDS: AMLODIPINE BESYLATE 5 MG TABLET PO SCH (10:41)
[2016-06-08] MEDS: VALSARTAN 160 MG TABLET PO SCH (10:41)
[2016-06-08] MEDS: ENOXAPARIN SODIUM INJ 40 MG/0.4 ML DISP.SYRIN SUBCUT SCH (10:41)
--- NOTE | 2016-06-08 11:06 | PDOC PROGRESS REPORT ---
Subjective Progress Note for:: 06/08/16 Subjective:: Patient is doing well and is complaining of theprevacid makes the stomach upset and selective go back to her Nexium. Patient's denied any chest pain no shortness of the breath very anxious patient seen by Dr. bonilla today as is the CT and ultrasound for the gallbladder discussed with the daughter on the bedside Physical Exam Vital Signs: Temp Pulse Resp BP Pulse Ox 98.5 F 66 20 128/74 H 100 06/08/16 07:31 06/08/16 07:31 06/08/16 07:31 06/08/16 07:31 06/08/16 07:31 Pulse Oximeter Nocturnal Start: 06/06/16 08: 45 Freq: RTQ4 Status: Complete Document 06/07/16 09:47 [facility] [place]Rec: 06/07/16 09:47 [facility] [email or web address][place] Nocturnal Pulse Oximetry Equipment Usage Equipment Discontinued Continuous SpO2 Machine # N 3 Intake & Output 06/07/16 06/08/16 06/09/16 06:59 06:59 06:59 Intake Total 2450 730 Output Total 3050 600 Balance -600 130 Weight 101.7 kg General appearance: PRESENT: no acute distress, well-developed, well-nourished Head exam: PRESENT: atraumatic, normocephalic Eye exam: PRESENT: conjunctiva pink, EOMI, PERRLA. ABSENT: scleral icterus Ear exam: PRESENT: normal external ear exam Mouth exam: PRESENT: moist, tongue midline Neck exam: PRESENT: full ROM. ABSENT: carotid bruit, JVD, lymphadenopathy, thyromegaly Cardiovascular exam: PRESENT: RRR. ABSENT: diastolic murmur, rubs, systolic murmur Pulses: PRESENT: normal dorsalis pedis pul, +2 pedal pulses bilateral Vascular exam: PRESENT: normal capillary refill GI/Abdominal exam: PRESENT: normal bowel sounds, soft. ABSENT: distended, guarding, mass, organolmegaly, rebound, tenderness Rectal exam: PRESENT: deferred Neurological exam: PRESENT: alert, awake, oriented to person, oriented to place , oriented to time, oriented to situation, CN II-XII grossly intact. ABSENT: motor sensory deficit Psychiatric exam: PRESENT: appropriate affect, normal mood. ABSENT: homicidal ideation, suicidal ideation Skin exam: PRESENT: dry, intact, warm. ABSENT: cyanosis, rash Results Laboratory Results: 06/06/16 05:55 06/06/16 05:55 06/05/16 06/05/16 06/05/16 09:35 09:35 15:50 Creatine Kinase 74 80 CK-MB (CK-2) 0.52 Troponin I < 0.012 06/05/16 06/05/16 06/05/16 15:50 22:15 22:15 Creatine Kinase 69 CK-MB (CK-2) 0.42 0.31 Troponin I < 0.012 < 0.012 06/06/16 06/06/16 05:55 05:55 Creatine Kinase 57 CK-MB (CK-2) < 0.22 Troponin I < 0.012 Impressions: Chest X-Ray 06/05/16 04:06 IMPRESSION: NO ACUTE RADIOGRAPHIC FINDING IN THE CHEST. Head CT 06/05/16 04:49 IMPRESSION: NORMAL BRAIN CT WITHOUT CONTRAST. Assessment & Plan - Diagnosis (1) Chest pain Qualifiers: Chest pain type: unspecified Qualified Code(s): R07.9 - Chest pain, unspecified Is this a current diagnosis for this admission?: YesPlan: Patient's have a nonconclusive the stress test and that discussed with the parts chaser and suggest the get the CT angiogram and ultrasound for the gallbladder and will go from there suspicion started does not have any chest pain right now (2) Malignant essential hypertension Is this a current diagnosis for this admission?: YesPlan: Stable (3) Palpitations Is this a current diagnosis for this admission?: YesPlan: Continues the current medications (4) Anxiety Is this a current diagnosis for this admission?: YesPlan: Stable (5) Gastroesophageal reflux Qualifiers: Esophagitis presence: without esophagitis Qualified Code(s): K21.9 - Gastro-esophageal reflux disease without esophagitis Is this a current diagnosis for this admission?: YesPlan: We will stop the current hospital medications and start the Nexium - Time Time Spent with patient: 15-24 minutes Medications reviewed and adjusted accordingly: Yes Anticipated discharge: Home - Inpatient Certification Medical Necessity: Need Close Monitoring Due to Risk of Patient Decompensation - Plan Summary Plan Summary: Discussed with the daughter on the bedside about the plan
[2016-06-08] MEDS ORDERED: METHYLPREDNISOLONE INJ 40 MG/1 ML SDV IV ONE (14:30)
[2016-06-09] MEDS: LEVOTHYROXINE SODIUM 0.05 MG TABLET PO SCH (06:37)
[2016-06-09] MEDS: VALSARTAN 160 MG TABLET PO SCH (10:34)
[2016-06-09] MEDS: ENOXAPARIN SODIUM INJ 40 MG/0.4 ML DISP.SYRIN SUBCUT SCH (10:35)
[2016-06-09] MEDS: AMLODIPINE BESYLATE 5 MG TABLET PO SCH (10:35)
--- NOTE | 2016-06-09 13:45 | PDOC DISCHARGE SUMMARY ---
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 (2) Malignant essential hypertension Is this a current diagnosis for this admission?: YesSummary: All stable (3) Palpitations Is this a current diagnosis for this admission?: YesSummary: All resolving most likely from anxity (4) Anxiety Is this a current diagnosis for this admission?: YesSummary: Stable (5) Gastroesophageal reflux Is this a current diagnosis for this admission?: YesSummary: on nexium (6) Syncope and collapse Is this a current diagnosis for this admission?: YesSummary: All workup negative condition is to follow as Outpatient for EEG finding and further neurologic evaluations - Additional Information Resuscitation Status: Full Code Discharge Diet: Regular Discharge Activity: Activity As Tolerated Home Medications: Esomeprazole Magnesium [Nexium] 40 mg PO QPM 06/05/16 Levothyroxine Sodium [Synthroid 0.05 mg Tablet] 0.05 mcg PO DAILY 06/05/16 Olopatadine HCl [Pataday] 1 drop OU DAILY 06/05/16 Orlistat [Gagan] 60 mg PO TID 06/05/16 Valsartan [Diovan 160 mg Tablet] 160 mg PO DAILY 06/05/16 Amlodipine Besylate [Norvasc 5 mg Tablet] 5 mg PO DAILY #30 tablet 06/09/16 History of Present Illness History of Present Illness: MAXIMO MACIEL is a 60 year old female This is a 60-year-old female presents with a complaint of chest pain episodes oceans all workup is negative patient seen by director of student affairs Hospital Course Hospital Course: 60-year-old female present in the ER with the complaint chest pain and syncopal episode patient's all workup is negative and the CT head is negative enzymes also negative the angiogram is also negative and ultrasound of the abdomen is also negative is other blood work is all stable patient's EEG finding so some mild abnormal and I think is most likely a metabolic patient's otherwise doing very well walk around in the hallway without any problem patient's by mouth intake is good very extensive discussions with the with the daughter and the patient's current condition and on the plan and patient's plan to go home today said that she will follow out patient's Physical Exam Vital Signs: Temp Pulse Resp BP Pulse Ox 98.5 F 72 20 121/86 H 98 06/09/16 11:03 06/09/16 11:03 06/09/16 11:03 06/09/16 11:03 06/09/16 11:03 Pulse Oximeter Nocturnal Start: 06/06/16 08: 45 Freq: RTQ4 Status: Complete Document 06/07/16 09:47 [facility] [place] 06/07/16 09:47 [facility] [email or web address] Nocturnal Pulse Oximetry Equipment Usage Equipment Discontinued Continuous SpO2 Machine # N 3 Intake & Output 06/08/16 06/09/16 06/10/16 06:59 06:59 06:59 Intake Total 730 610 Output Total 600 Balance 130 610 Weight 101.7 kg General appearance: PRESENT: no acute distress, well-developed, well-nourished Head exam: PRESENT: atraumatic, normocephalic Eye exam: PRESENT: conjunctiva pink, EOMI, PERRLA. ABSENT: scleral icterus Ear exam: PRESENT: normal external ear exam Mouth exam: PRESENT: moist, tongue midline Neck exam: PRESENT: full ROM. ABSENT: carotid bruit, JVD, lymphadenopathy, thyromegaly Cardiovascular exam: PRESENT: RRR. ABSENT: diastolic murmur, rubs, systolic murmur Pulses: PRESENT: normal dorsalis pedis pul, +2 pedal pulses bilateral Vascular exam: PRESENT: normal capillary refill GI/Abdominal exam: PRESENT: normal bowel sounds, soft. ABSENT: distended, guarding, mass, organolmegaly, rebound, tenderness Rectal exam: PRESENT: deferred Neurological exam: PRESENT: alert, awake, oriented to person, oriented to place , oriented to time, oriented to situation, CN II-XII grossly intact. ABSENT: motor sensory deficit Psychiatric exam: PRESENT: appropriate affect, normal mood. ABSENT: homicidal ideation, suicidal ideation Skin exam: PRESENT: dry, intact, warm. ABSENT: cyanosis, rash Results Laboratory Results: 06/06/16 05:55 06/06/16 05:55 06/05/16 06/05/16 06/05/16 09:35 09:35 15:50 Creatine Kinase 74 80 CK-MB (CK-2) 0.52 Troponin I < 0.012 06/05/16 06/05/16 06/05/16 15:50 22:15 22:15 Creatine Kinase 69 CK-MB (CK-2) 0.42 0.31 Troponin I < 0.012 < 0.012 06/06/16 06/06/16 05:55 05:55 Creatine Kinase 57 CK-MB (CK-2) < 0.22 Troponin I < 0.012 Impressions: Chest X-Ray 06/05/16 04:06 IMPRESSION: NO ACUTE RADIOGRAPHIC FINDING IN THE CHEST. Head CT 06/05/16 04:49 IMPRESSION: NORMAL BRAIN CT WITHOUT CONTRAST. Abdomen Ultrasound 06/08/16 00:00 IMPRESSION: NORMAL RIGHT UPPER QUADRANT ULTRASOUND. Chest/Abdomen CTA 06/08/16 00:00 IMPRESSION: NORMAL CTA OF THE CHEST. NO PULMONARY EMBOLI. Plan Time Spent: Greater than 30 Minutes - d/w daughter about ptall test and plan and d/w cardilogy and s/o f/u out pt for stress test d/w daughter with eeg finding
[2016-06-09 14:52] VITALS: BP 139/94
--- NOTE | 2016-06-09 17:33 | PDOC CONSULTATION ---
Consultation Consult Date: 06/08/16 Attending physician:: CATHERINE REIS Consult reason:: Chest pain History of Present Illness Admission Date/PCP: 06/05/16 08:48 SHARRI BAEZA Patient complains of: Chest pain History of Present Illness: MAXIMO MACIEL is a 60 year old female MAXIMO MACIEL is a 60 year old female admitted through ED with complaint of chest pain with palpitation, preceding headache and eventually passing out. Her last event of passing out occurred while patient was in the registration area of the ED. These is her third visit to our ED with reported passing out episode. Her last event at the ED was witnessed by nursing staff. Patient denied any associated diaphoresis but reported preceding felling of blurry vision, headache, dizziness, and nausea but no vomiting. She described headache as starting from the back of her head and spread frontally. She admitted to similar episodes outside of the hospital. Daughter at bedside denied any associated seizure like movement with episodes of syncope. Patient denied any history of stroke or heart attack, alcohol intake, illicit drug usage, or cigarette smoking. Patient's daughter is translating for her at bedside. During this hospitalization patient had a 2-D echocardiogram which was noted to be relatively unremarkable. Patient also had a treadmill stress test which was noted to be indeterminate but patient stopped the treadmill because of complaints of dizziness. Patient was noted to have no significant abnormalities in her heart rhythm or blood pressure. Subsequently I was consulted by Dr. Reis for further evaluation and management. Patient's recent cardiac evaluations were reviewed. Patient does describes intermittent nausea, vomiting and dizziness. Past Medical History Cardiac Medical History: Reports: Hypertension GI Medical History: Reports: Gastroesophageal Reflux Disease Psychiatric Medical History: Denies: Depression Past Surgical History Past Surgical History: Reports: Orthopedic Surgery - R hand and arm Social History Information Source: Patient Smoking Status: Unknown if Ever Smoked Frequency of Alcohol Use: None Hx Recreational Drug Use: No Drugs: None Hx Prescription Drug Abuse: No - Advance Directive Resuscitation Status: Full Code Family History Family History: Reviewed & Not Pertinent, CAD Parental Family History Reviewed: Yes Children Family History Reviewed: Yes Sibling(s) Family History Reviewed.: Yes - Negative for premature coronary artery disease or sudden cardiac in the family amongst first degree relatives. Medication/Allergy Home Medications: Esomeprazole Magnesium [Nexium] 40 mg PO QPM 06/05/16 Levothyroxine Sodium [Synthroid 0.05 mg Tablet] 0.05 mcg PO DAILY 06/05/16 Olopatadine HCl [Pataday] 1 drop OU DAILY 06/05/16 Orlistat [Gagan] 60 mg PO TID 06/05/16 Valsartan [Diovan 160 mg Tablet] 160 mg PO DAILY 06/05/16 Amlodipine Besylate [Norvasc 5 mg Tablet] 5 mg PO DAILY #30 tablet 06/09/16 Allergies/Adverse Reactions: No Known Allergies Allergy (Unverified 06/02/16 02:37) Review of Systems Review of Systems: Please see history of present illness and past medical history as wall. Constitutional: No fever or chills reported. Head : No recent chronic headaches, recent head injury. Eyes: No recent eye pain, diplopia, redness, discharge, acute visual changes. Ears: No recent chronic ear pain, acute hearing loss, ear discharge. Oral cavity: No recent ulcerations, bleeding, oral cavity discomfort. Neck: No recent acute neck pain reported. Hematologic: No recent easy bruising or bleeding or hematologic malignancy reported. Lymphatic: No recent lymphatic malignancy, chronic lymphadenopathy reported yet Cardiovascular system review: See history of present illness. Occasional palpitations. Respiratory system review: No recent chronic cough, hemoptysis, blood clots in the lungs reported. Mild Shortness of breath on exertion Gastrointestinal system review: Negative for any recent acute or chronic abdominal pain, hematemesis, melena, recent change in bowel habits. Intermittent nausea and vomiting reported. Genitourinary system review: No recent acute or chronic hematuria, flank pain, UTI etc. reported. Skin system review: Negative for any recent abnormal bruising, no rash, no pruritus reported. Neurologic: No prior history of strokes, mini strokes, seizure disorder. Syncope as noted above in history of present illness. Psychologic: No history of major psychosis or major depression reported. Possible minor depression. Musculoskeletal: Minor aches and pains reported. No acute joint swelling reported. Endocrine: No recent polyuria, polydipsia, recent heat or cold intolerance. Physical Exam Vital Signs: Temp Pulse Resp BP Pulse Ox 98.5 F 66 20 128/74 H 100 06/08/16 07:31 06/08/16 07:31 06/08/16 07:31 06/08/16 07:31 06/08/16 07:31 Pulse Oximeter Nocturnal Start: 06/06/16 08: 45 Freq: RTQ4 Status: Complete Document 06/07/16 09:47 [facility] [place] (Rec: 06/07/16 09:47 [facility] [place] [email or web address]) Nocturnal Pulse Oximetry Equipment Usage Equipment Discontinued Continuous SpO2 Machine # N 3 Intake & Output 06/07/16 06/08/16 06/09/16 06:59 06:59 06:59 Intake Total 2450 730 Output Total 3050 600 Balance -600 130 Weight 101.7 kg Exam: GENERAL: well-nourished and in no acute distress. Alert and oriented x3 HEAD: Atraumatic, normocephalic. EYES: Pupils equal round and reactive to light, extraocular movements intact, sclera anicteric, conjunctiva are normal. ENT: TMs normal, nares patent, oropharynx clear without exudates. Moist mucous membranes. No oral ulcerations or bleeding gums noted NECK: supple without lymphadenopathy. Trachea is central. No cervical or axillary lymphadenopathy noted. Carotids are 2+, JVD WNL LUNGS: Respiration seems nonlabored, no significant accessory muscle action noted. Breath sounds clear to auscultation bilaterally and equal. No wheezes rales or rhonchi. No significant dullness noted on percussion. CHEST: Palpation of the chest wall shows no significant chest wall tenderness or abnormalities. 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 ABDOMEN: Soft, no significant tenderness appreciated, normoactive bowel sounds. No guarding, no rebound. No rigidity noted . No masses appreciated. EXTREMITIES: Pedal pulses are 1-2+, no calf tenderness noted. No clubbing or cyanosis.trace to 1+ pedal edema noted NEUROLOGICAL: Focused neurological exam showed no significant neurologic deficit. Normal speech, no focal weakness appreciated. PSYCH: Normal mood, normal affect. Judgment and insight within normal limits. SKIN: No significant ecchymosis, rash, ulcerations or signs of pruritus noted. MUSCULOSKELETAL EXAM: No significant joint swelling noted. Results Laboratory Results: 06/06/16 05:55 06/06/16 05:55 06/05/16 06/05/16 06/05/16 09:35 09:35 15:50 Creatine Kinase 74 80 CK-MB (CK-2) 0.52 Troponin I < 0.012 06/05/16 06/05/16 06/05/16 15:50 22:15 22:15 Creatine Kinase 69 CK-MB (CK-2) 0.42 0.31 Troponin I < 0.012 < 0.012 06/06/16 06/06/16 05:55 05:55 Creatine Kinase 57 CK-MB (CK-2) < 0.22 Troponin I < 0.012 EKG Comments: Showed sinus rhythm, no acute ST-T wave changes are noted. Impressions: Chest X-Ray 06/05/16 04:06 IMPRESSION: NO ACUTE RADIOGRAPHIC FINDING IN THE CHEST. Head CT 06/05/16 04:49 IMPRESSION: NORMAL BRAIN CT WITHOUT CONTRAST. Assessment & Plan - Diagnosis (1) Chest pain Qualifiers: Chest pain type: unspecified Qualified Code(s): R07.9 - Chest pain, unspecified Is this a current diagnosis for this admission?: YesPlan: Patient had a 2-D echocardiogram, normal EKG, negative cardiac enzyme, recent stress test was indeterminate. Clinically does not seem to be cardiac ischemic syndrome. Patient may have gastroesophageal reflux, anxiety panic disorder as cause of chest pain. Patient however will benefit from a nuclear stress test. This I believe can be scheduled as an outpatient. Patient in the meantime will be encouraged to walk in the hallway briskly. If she does well, she can be discharged with close cardiology follow-up. Patient also is to report any sustained palpitations, syncope, near syncope. (2) Gastroesophageal reflux Qualifiers: Esophagitis presence: without esophagitis Qualified Code(s): K21.9 - Gastro-esophageal reflux disease without esophagitis Is this a current diagnosis for this admission?: YesPlan: Recommend proton pump inhibitor. Elevation will also benefit from weight loss, dietary manipulations etc. (3) Syncope and collapse Is this a current diagnosis for this admission?: YesPlan: Exact etiology not clear but would recommend event monitoring as an outpatient and also a tilt table testing. Multiple differential diagnoses reviewed with the patient. This includes cardiac dysrhythmia, postural hypotension, cerebral vasospasm in reaction to elevated blood pressure etc. (4) Anxiety Is this a current diagnosis for this admission?: YesPlan: Patient seems to have significant element of anxiety. Elevation will benefit from SSRI agent and anxiolytics. (5) Hypertension Qualifiers: Hypertension type: essential hypertension Qualified Code(s): I10 - Essential (primary) hypertension Is this a current diagnosis for this admission?: YesPlan: Blood pressure goal in this patient is 140/90 or less. This was discussed with the patient. Currently blood pressure under reasonable control. Better medication for this patient are MARY inhibitor/ARB/beta will etc. discussed side effects of uncontrolled hypertension and also severe hypotension. - Notes Notes: CODE STATUS was discussed, patient remains full code. Surrogate decision-maker patient's daughter. Multiple medical problems were addressed. - Time Time Spent: 30 to 50 Minutes - More than 50% of the time spent coordinating care , discussing management plans with involved caregivers. Management plans discussed with involved personnels. Medical decision making was of moderate complexity.
--- NOTE | 2016-06-09 17:37 | PDOC PROGRESS REPORT ---
Subjective Progress Note for:: 06/09/16 Subjective:: Patient seems to be doing better. Patient has ambulated briskly many times in the hallway. Pt is denying any chest arm or neck discomfort. Patient denying any PND, orthopnea. Patient denied any sustained palpitations, dizziness, syncope, near syncope. Patient denying any fever chills. Patient denying any other significant discomfort. Patient is maintaining sinus rhythm. Review of systems: Rest review of systems negative. Medications: Medications have been reviewed. Physical Exam Vital Signs: Temp Pulse Resp BP Pulse Ox 98.5 F 72 20 139/94 H 98 06/09/16 14:47 06/09/16 14:47 06/09/16 14:47 06/09/16 14:47 06/09/16 14:47 Pulse Oximeter Nocturnal Start: 06/06/16 08: 45 Freq: RTQ4 Status: Complete Document 06/07/16 09:47 [facility] [place]Rec: 06/07/16 09:47 [facility] [email or web address][place] Nocturnal Pulse Oximetry Equipment Usage Equipment Discontinued Continuous SpO2 Machine # N 3 Intake & Output 06/08/16 06/09/16 06/10/16 06:59 06:59 06:59 Intake Total 730 610 Output Total 600 Balance 130 610 Weight 101.7 kg Exam: GENERAL: well-nourished and in no acute distress. Alert and oriented x3 HEAD: Atraumatic, normocephalic. EYES: Pupils equal round and reactive to light, extraocular movements intact, sclera anicteric, conjunctiva are normal. ENT: TMs normal, nares patent, oropharynx clear without exudates. Moist mucous membranes. No oral ulcerations or bleeding gums noted NECK: supple without lymphadenopathy. Trachea is central. No cervical or axillary lymphadenopathy noted. Carotids are 2+, JVD WNL LUNGS: Respiration seems nonlabored, no significant accessory muscle action noted. Breath sounds clear to auscultation bilaterally and equal. No wheezes rales or rhonchi. No significant dullness noted on percussion. CHEST: Palpation of the chest wall shows no significant chest wall tenderness or abnormalities. 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 ABDOMEN: Soft, no significant tenderness appreciated, normoactive bowel sounds. No guarding, no rebound. No rigidity noted . No masses appreciated. EXTREMITIES: Pedal pulses are 1-2+, no calf tenderness noted. No clubbing or cyanosis.trace to 1+ pedal edema noted NEUROLOGICAL: Focused neurological exam showed no significant neurologic deficit. Normal speech, no focal weakness appreciated. PSYCH: Normal mood, normal affect. Judgment and insight within normal limits. SKIN: No significant ecchymosis, rash, ulcerations or signs of pruritus noted. MUSCULOSKELETAL EXAM: No significant joint swelling noted. Results Laboratory Results: 06/06/16 05:55 06/06/16 05:55 06/05/16 06/05/16 06/05/16 09:35 09:35 15:50 Creatine Kinase 74 80 CK-MB (CK-2) 0.52 Troponin I < 0.012 06/05/16 06/05/16 06/05/16 15:50 22:15 22:15 Creatine Kinase 69 CK-MB (CK-2) 0.42 0.31 Troponin I < 0.012 < 0.012 06/06/16 06/06/16 05:55 05:55 Creatine Kinase 57 CK-MB (CK-2) < 0.22 Troponin I < 0.012 Impressions: Chest X-Ray 06/05/16 04:06 IMPRESSION: NO ACUTE RADIOGRAPHIC FINDING IN THE CHEST. Head CT 06/05/16 04:49 IMPRESSION: NORMAL BRAIN CT WITHOUT CONTRAST. Abdomen Ultrasound 06/08/16 00:00 IMPRESSION: NORMAL RIGHT UPPER QUADRANT ULTRASOUND. Chest/Abdomen CTA 06/08/16 00:00 IMPRESSION: NORMAL CTA OF THE CHEST. NO PULMONARY EMBOLI. Assessment & Plan - Diagnosis (1) Chest pain Qualifiers: Chest pain type: unspecified Qualified Code(s): R07.9 - Chest pain, unspecified Is this a current diagnosis for this admission?: Yes (2) Gastroesophageal reflux Qualifiers: Esophagitis presence: without esophagitis Qualified Code(s): K21.9 - Gastro-esophageal reflux disease without esophagitis Is this a current diagnosis for this admission?: Yes (3) Syncope and collapse Is this a current diagnosis for this admission?: Yes (4) Anxiety Is this a current diagnosis for this admission?: Yes (5) Hypertension Qualifiers: Hypertension type: essential hypertension Qualified Code(s): I10 - Essential (primary) hypertension Is this a current diagnosis for this admission?: Yes - Notes Notes: Patient has done well. Rhythm strips did not show any significant cardiac dysrhythmia. Blood pressures has been relatively well controlled. Patient had no recurrence of chest pain. Patient may have some underlying anxiety depression. Patient wishes to be discharged with close follow-up as an outpatient. Will schedule a nuclear stress test as an outpatient. Patient also encouraged to exercise on her own. - Time Time with patient: 15-25 minutes - CODE STATUS was discussed, patient remains full code. Surrogate decision-maker unchanged. Multiple medical problems were addressed.More than 50% of the time spent coordinating care, discussing management plans with involved caregivers. Management plans discussed with involved personnels. Medical decision making was of moderate complexity.
== END 2016-06-09 15:30 | disposition home or self-care (01) | DRG 305 ==
LOC: ER 02:33 → EH 05:30 → UNDOADMOB 05:30 → EH 08:01 → OBSVTOIN 08:48 → EH 09:04 → 4W 19:55 → 4N 06-07 22:40
PROVIDERS: ADMIT Internal Medicine Geriatric Medicine; ATTEND Internal Medicine Geriatric Medicine
DX: I10 Essential (primary) hypertension (principal); R00.2 Palpitations; F41.9 Anxiety disorder, unspecified; K21.9 Gastro-esophageal reflux disease without esophagitis; R55 Syncope and collapse; Z79.899 Other long term (current) drug therapy; Z82.49 Family history of ischemic heart disease and other diseases of the circulatory system
CPT/HCPCS: 36415; 70450; 71010; 71275; 76705; 80053; 80061; 81001; 82550; 82553; 82962; 83036; 83690; 84484; 85025; 85610; 85730; 93005; 93010; 93017; 93306; 94762; 95819; 96372; 99285; J1650; J2405; J7030

== ENCOUNTER 2016-07-11 23:18 | Emergency (ER) | payer MEDICAID ==
[2016-07-12] MEDS ORDERED: LORAZEPAM 1 MG TABLET PO ONE (00:30)
--- NOTE | 2016-07-12 00:33 | ER Document Report ---
ED General - General Chief Complaint: Shortness Of Breath Stated Complaint: BLOOD PRESSURE PROBLEMS Notes: Patient is a 61-year-old female with past medical history of hypertension who presents with an episode of palpitations and concerns about her blood pressure during a sleep study. States that shortly after beginning her sleep study she began to feel a sensation of palpitations as well as extreme anxiety. States that she had the observer of the sleep study to check her blood pressure and was found to be above her baseline which prompted her to come to the emergency department. At time of arrival patient's main complaint is that she is quite anxious. States she has a history of anxiety. Nothing improves or worsens her symptoms. She denies any associated chest pain or shortness of breath. She does complain of urinary frequency and urgency. She has not seen primary care doctor regarding today's concerns. She was recently admitted to the hospital for chest pain evaluation and had a normal workup at that time. TRAVEL OUTSIDE OF THE [place] IN LAST 30 DAYS: No - Related Data Allergies/Adverse Reactions: No Known Allergies Allergy (Unverified 06/02/16 02:37) Past Medical History - General Information source: Patient - Social History Smoking Status: Never Smoker Frequency of alcohol use: None Drug Abuse: None Lives with: Family Family History: Reviewed & Not Pertinent, CAD - Past Medical History Cardiac Medical History: Reports: Hx Hypertension Renal/ Medical History: Denies: Hx Peritoneal Dialysis GI Medical History: Reports: Hx Gastroesophageal Reflux Disease Psychiatric Medical History: Denies: Hx Depression Past Surgical History: Reports: Hx Orthopedic Surgery - R hand and arm - Immunizations Hx Diphtheria, Pertussis, Tetanus Vaccination: No Review of Systems - Review of Systems Notes: Constitutional: Negative for fever. HENT: Negative for sore throat. Eyes: Negative for visual changes. Cardiovascular: Negative for chest pain. Respiratory: Negative for shortness of breath. Gastrointestinal: Negative for abdominal pain, vomiting or diarrhea. Genitourinary: Negative for dysuria. Musculoskeletal: Negative for back pain. Skin: Negative for rash. Neurological: Negative for headaches, weakness or numbness. 10 point ROS negative except as marked above and in HPI. Physical Exam - Vital signs Vitals: Temp Pulse Resp BP Pulse Ox 97.7 F 73 15 143/86 H 100 07/11/16 23:44 07/11/16 23:44 07/11/16 23:44 07/11/16 23:44 07/11/16 23:44 Interpretation: Hypertensive Notes: PHYSICAL EXAMINATION: GENERAL: Well-appearing, well-nourished and in no acute distress. HEAD: Atraumatic, normocephalic. EYES: Pupils equal round and reactive to light, extraocular movements intact, sclera anicteric, conjunctiva are normal. ENT: nares patent, oropharynx clear without exudates. Moist mucous membranes. NECK: Normal range of motion, supple without lymphadenopathy LUNGS: Breath sounds clear to auscultation bilaterally and equal. No wheezes rales or rhonchi. HEART: Regular rate and rhythm without murmurs ABDOMEN: Soft, nontender, normoactive bowel sounds. No guarding, no rebound. No masses appreciated. EXTREMITIES: Normal range of motion, no pitting or edema. No cyanosis. NEUROLOGICAL: No focal neurological deficits. Moves all extremities spontaneously and on command. PSYCH: Patient appears visibly anxious, slightly tremulous SKIN: Warm, Dry, normal turgor, no rashes or lesions noted. Course - Re-evaluation Re-evalutation: 07/12/16 00:31 Patient presents with feelings of palpitations and anxiety while trying to complete a sleep study. She is complaining mostly of anxiety and mild dizziness at time of presentation. Denies any chest pain or SOB. States this feels similar to prior episodes of anxiety are overall clinical picture is consistent with this. She is quite tremulous on exam. Admits that the symptoms started was immediately upon beginning her sleep study that she was nursed about this test. I do not suspect a pulmonary embolus, aortic dissection, pneumothorax, or ACS based on her exam and history. Her EKG is without ischemic changes. I do not believe laboratory testing beyond a urinalysis is indicated at this time based on her clinical history and evaluation. Her urinalysis is being obtained as she is complaining of frequent urination and burning with urination. 07/12/16 02:09 Patient is had complete resolution of her symptoms including her frequency of urination. Urinalysis is unremarkable. Her vitals have remained completely within normal limits and she is asking to go home at this time.At this time will discharge with return precautions and follow-up recommendations. Verbal discharge instructions given a the bedside and opportunity for questions given. Medication warnings reviewed. Patient is in agreement with this plan and has verbalized understanding of return precautions and the need for primary care follow-up in the next 24-72 hours. - Vital Signs Vital signs: Temp Pulse Resp BP Pulse Ox 97.7 F 73 14 128/70 H 94 07/11/16 23:44 07/11/16 23:44 07/12/16 01:01 07/12/16 01:01 07/12/16 01:01 - Laboratory Laboratory results interpreted by me: 07/12/16 00:40 Ur Leukocyte Esterase TRACE H - EKG Interpretation by Me Additional EKG results interpreted by me: 07/12/16 02:44 Sinus rhythm. Rate 74. No ST elevations or depressions. QTC is 400 Discharge - Discharge Clinical Impression: Palpitations Condition: Good Disposition: HOME, SELF-CARE Additional Instructions: Follow with your primary care doctor in the morning. Please return to the emergency room immediately if you experience any concerning symptoms including high fevers, severe headache, chest pain, difficulty breathing, abdominal pain, slurred speech, numbness or weakness in your arms or legs, or any other symptom that concerns you. Referrals: SHARRI BAEZA MD [Primary Care Provider] - Follow up as needed
[2016-07-12 00:56] LABS: APPEARANCE,URINE SLIGHTLY-CLOUDY; BILIRUBIN,URINE NEGATIVE (NEGATIVE); GLUCOSE, URINE NEGATIVE (NEGATIVE); KETONES,URINE NEGATIVE (NEGATIVE); LEUKOCYTE ESTERASE,URINE TRACE (NEGATIVE); NITRITE,URINE NEGATIVE (NEGATIVE); PROTEIN,URINE NEGATIVE (NEGATIVE); UROBILINOGEN,URINE NEGATIVE mg/dL (<2.0)
[2016-07-12 02:48] VITALS: BP 117/73
--- NOTE | 2016-07-12 09:25 | EKG REPORT ---
SEVERITY:- BORDERLINE ECG - SINUS RHYTHM BORDERLINE T ABNORMALITIES, ANT-LAT LEADS : Confirmed by: Fabian Segura MD 12-Jul-2016 09:23:41
== END 2016-07-12 02:48 | disposition home or self-care (01) ==
LOC: ER 23:18
DX: F41.9 Anxiety disorder, unspecified (principal); R00.2 Palpitations; I10 Essential (primary) hypertension; R42 Dizziness and giddiness; R35.0 Frequency of micturition; R39.15 Urgency of urination; Z82.49 Family history of ischemic heart disease and other diseases of the circulatory system; R30.0 Dysuria
CPT/HCPCS: 81001; 93005; 93010; 99285

== ENCOUNTER → 2017-03-06 | Outpatient (CLI) | payer MEDICAID ==
[~2017-03-06] MED LIST: AMINOPHYLLINE INJ/PF 250 MG/10 ML SDV IV ONE; REGADENOSON INJ 0.4 MG/5 ML DISP.SYRIN IV ONE
--- NOTE | 2017-03-06 13:00 | DRAGON STRESS TEST REPORT ---
INTRAVENOUS LEXISCAN CARDIOLITE STRESS TEST USING SINGLE PHOTON EMMISION COMPUTERIZED TOMOGRAPHIC. DATE OF PROCEDURE: March 06, 2017 INDICATION : Chest pain CARDIAC RISK FACTORS: Hypertension RESTING EKG: Sinus rhythm, no baseline ST-T wave changes noted. STRESS EKG: No significant changes noted with LexiScan bolus REASON FOR TERMINATION: Protocol. PROCEDURE REPORT: Baseline heart rate 71 beats per minute with blood pressure of 143/78. Patient had no significant complaints. Heart rate at 2 minutes post bolus 116 with a blood pressure of 139/72. 3 minutes post bolus heart rate 91 with blood pressure of 135/72. No significant EKG changes were noted. Patient had no significant complaints during the procedure or postprocedure. Patient injected with Aminophyllin 75 mg at 3 minutes or later after Lexiscan bolus. CONCLUSIONS: Normal EKG and hemodynamic response to IV LexiScan. NUCLEAR DATA: At rest the patient was given 15.79 millicuries of technetium 99 sestamibi injected intravenously. As per protocol rest gated SPECT images were obtained. Subsequently the patient was given intravenous LexiScan at a dose of 0.4 mg in 5 mL intravenously, followed by flush with normal saline. Subsequently the stress dose of 46.4 millicuries of technetium 99 sestamibi was injected intravenously. As per protocol stress gated images were obtained. NUCLEAR INTERPRETATION: Both raw and processed data were used for interpretation. Visual, qualitative, computer-generated quantitative data was used. There was good myocardial uptake of technetium compound. Motion artifact and soft tissue attenuations were noted. Increased visceral uptake was noted. Significant breast attenuation artifact was noted. Mild decreased uptake was noted in the distal anterior wall consistent with probable mild distal anterior wall ischemia versus differences in breast attenuation artifact. There were no corresponding wall motion abnormalities noted on gated imaging. No definitive areas of transient perfusion defect noted. No definitive areas of fixed perfusion defect or scars noted. EKG gated imaging showed LV EF at 45 %, rest and stress gated EF similar visually. No definite regional wall motion abnormalities noted. T. I D. ratio was 0.88. Lung heart ratio noted to be within normal limits 0.33. No significant extracardiac and abnormal radiotracer activities were noted. RV free wall uptake was noted to be WNL. IMPRESSION: Also refer to comments under nuclear interpretation. Also test results needs to be interpreted in the context of pretest probability. 1. Probable mild distal anterior wall ischemia versus differences in breast attenuation artifact. There were no corresponding wall motion abnormalities noted on gated imaging. Clinical correlation requested. 2. There is no definitive scintigraphic evidence of myocardial infarction/scar. 3. EKG gated imaging shows left ventricular ejection fraction of approximately 45 %. No definite regional wall motion normality is noted. 4. Clinical correlation requested as occasionally single vessel disease or balanced ischemia could be missed. In approximately 10% of the cases Lexiscan may not cause adequate vasodilatory stress. RECOMMENDATIONS: Aggressive risk factor modification, medical therapy. Clinical correlation with echocardiogram derived ejection fraction. Inability to exercise by itself can lead to increased cardiovascular event risks. Meliton Jean M.D., KATHERINE [employer]ning Hanger Helper area field manager, Board certified in cardiovascular diseases, Nuclear cardiology, Echocardiography Cardiac CT and cardiac MRI Ph. [phone] [facility]
== END ==
LOC: RAD 06:58
PROVIDERS: ATTEND Internal Medicine Geriatric Medicine
DX: R07.89 Other chest pain (principal)
CPT/HCPCS: 93017; 78452; A9500; J2785; J0280; Q9969

== ENCOUNTER → 2017-03-10 | Outpatient (CLI) | payer MEDICAID ==
--- NOTE | 2017-03-10 14:45 | WOMENS IMAGING REPORT ---
EXAM DESCRIPTION: U/S ABDOMEN LIMITED COMPLETED DATE/TIME: 03/10/2017 11:22 am REASON FOR STUDY: UNSPECIFIED ABDOMINAL PAIN; R10.9 R10.9 UNSPECIFIED ABDOMINAL PAIN COMPARISON: None. TECHNIQUE: Dynamic and static grayscale images acquired of the abdomen and recorded on PACS. Additio nal selected color Doppler and spectral images recorded. LIMITATIONS: None. FINDINGS: PANCREAS: No masses. No peripancreatic edema or fluid collections. LIVER: Echotexture is coarse with increased echogenicity consistent with fatty infiltration. LIVER VASCULATURE: Normal directional flow of the main portal vein and hepatic veins. GALLBLADDER: Gallstone(s). No pericholecystic fluid. No wall thickening. ULTRASOUND-DETECTED CARTER'S SIGN: Negative. INTRAHEPATIC DUCTS AND COMMON DUCT: CBD and intrahepatic ducts normal caliber. No filling defects. INFERIOR VENA CAVA: Normal flow. AORTA: No aneurysm. RIGHT KIDNEY: Normal size. Normal echogenicity. No solid or suspicious masses. No hydronephros is. No calcifications. PERITONEAL AND RIGHT PLEURAL SPACE: No ascites or effusions. OTHER: No other significant finding. IMPRESSION: Cholelithiasis. Fatty liver. No ascites. TECHNICAL DOCUMENTATION: JOB ID: [id number] [employer]- All Rights Reserved
== END ==
LOC: RAD 10:41
PROVIDERS: ATTEND Internal Medicine Geriatric Medicine
DX: R10.9 Unspecified abdominal pain (principal)
CPT/HCPCS: 76705

== ENCOUNTER 2017-03-21 12:14 | Emergency (ER) | payer MEDICAID ==
--- NOTE | 2017-03-21 12:34 | ER Document Report ---
HPI - HPI Patient complains to provider of: rash from ? underwear Onset: Other - last week Onset/Duration: Persistent Quality of pain: Burning Pain Level: 5 Context: 61 yo female c/o mons pubis rash, itching, bump, burning, red after wearing new underwear from [employer]. No fever. Tried cortisone cream not helping. Associated Symptoms: None Exacerbated by: Movement Relieved by: Denies Similar symptoms previously: No Recently seen / treated by doctor: No - ROS ROS below otherwise negative: Yes Systems Reviewed and Negative: Yes All other systems reviewed and negative - CARDIOVASCULAR Cardiovascular: DENIES: Chest pain - REPRODUCTIVE Reproductive: DENIES: : - DERM Skin Color: Normal Past Medical History - General Information source: Patient - Social History Smoking Status: Never Smoker Chew tobacco use (# tins/day): No Frequency of alcohol use: None Drug Abuse: None Lives with: Family Family History: Reviewed & Not Pertinent, CAD Patient has suicidal ideation: No Patient has homicidal ideation: No - Past Medical History Cardiac Medical History: Reports: Hx Hypertension Renal/ Medical History: Denies: Hx Peritoneal Dialysis GI Medical History: Reports: Hx Gastroesophageal Reflux Disease Psychiatric Medical History: Reports: Hx Depression Past Surgical History: Reports: Hx Orthopedic Surgery - R hand and arm - Immunizations Hx Diphtheria, Pertussis, Tetanus Vaccination: No Vertical Provider Document - CONSTITUTIONAL Agree With Documented VS: Yes Exam Limitations: No Limitations General Appearance: No Apparent Distress - INFECTION CONTROL TRAVEL OUTSIDE OF THE [place] IN LAST 30 DAYS: No - HEENT HEENT: Normocephalic - NECK Neck: Supple - RESPIRATORY O2 Sat by Pulse Oximetry: 97 - MUSCULOSKELETAL/EXTREMETIES Musculoskeletal/Extremeties: NANO LAZCANO - NEURO Level of Consciousness: Awake, Alert, Appropriate - DERM Integumentary: Rash - tinea cruris, bilateral inquinal skin no infection or lymphangitis, 3mm cyst/papule low central mons pubis crest, not red, not hot. Course - Vital Signs Vital signs: Temp Pulse Resp BP Pulse Ox 98.1 F 74 20 155/89 H 97 03/21/17 12:20 03/21/17 12:20 03/21/17 12:20 03/21/17 12:20 03/21/17 12:20 Discharge - Discharge Clinical Impression: pubis cyst, Tinea cruris Condition: Good Disposition: HOME, SELF-CARE Instructions: Skin Fungus ([facility]), Topical Antifungal ([facility]) Additional Instructions: topical antifungal cream three times per day see the substation maintenance technician about the mons pubis cyst for removal to er any concerns Please complete the patient satisfaction survey if you get one, and return it.. If you do not receive a survey, then you can go to the [facility] website, [email or web address] and place your comments about your very good care. Thank you very much. It was a pleasure being your medical provider today. Prescriptions: Clotrimazole 1 applic VG TID #45 gm Referrals: ALBA HARMON DO [ACTIVE STAFF] - Follow up as needed
[2017-03-21 14:09] VITALS: BP 149/82
== END 2017-03-21 13:30 | disposition home or self-care (01) ==
LOC: ER 12:14
DX: B35.6 Tinea cruris (principal); L72.8 Other follicular cysts of the skin and subcutaneous tissue; I10 Essential (primary) hypertension
CPT/HCPCS: 99283

== ENCOUNTER → 2017-03-21 | Outpatient (CLI) | payer MEDICAID ==
--- NOTE | 2017-03-21 12:49 | RADIOLOGY REPORT (SQ) ---
EXAM DESCRIPTION: KUB/ABDOMEN (SINGLE VIEW) COMPLETED DATE/TIME: 03/21/2017 11:47 am REASON FOR STUDY: ABD PAIN (R10.9) R10.9 UNSPECIFIED ABDOMINAL PAIN COMPARISON: None. NUMBER OF VIEWS: One view. TECHNIQUE: Supine radiographic image of the abdomen acquired. LIMITATIONS: None. FINDINGS: BOWEL GAS PATTERN: Normal bowel gas pattern. No dilated loops. CALCIFICATIONS: No suspicious calcifications. SOFT TISSUES: No gross mass or suggestion of organomegaly. HARDWARE: None in the abdomen. BONES: No acute fracture. No worrisome bone lesions. OTHER: No other significant finding. IMPRESSION: NO RADIOGRAPHIC EVIDENCE FOR ACUTE ABDOMINAL DISEASE. TECHNICAL DOCUMENTATION: JOB ID: [id number] [employer]- All Rights Reserved
== END ==
LOC: RAD 11:31
PROVIDERS: ATTEND Internal Medicine Geriatric Medicine
DX: R10.9 Unspecified abdominal pain (principal)
CPT/HCPCS: 74000

== ENCOUNTER 2017-09-26 15:58 | Emergency (ER) | payer MEDICAID ==
[2017-09-26] MEDS ORDERED: ASPIRIN 81 MG TABLET, CHEWABLE PO ONE (17:00)
[2017-09-26 17:22] LABS: ABSOLUTE LYMPHOCYTES (AUTO) 1.9 10^3/uL (0.5-4.7); ABSOLUTE MONOCYTES (AUTO) 0.5 10^3/uL (0.1-1.4); ABSOLUTE NEUT (AUTO) 6.9 10^3/uL (1.7-8.2); BASOPHILS % (AUTO) 0.5 % (0-2); EOSINOPHILS % (AUTO) 0.5 % (0-6); LYMPHOCYTES % (AUTO) 20.3 % (13-45); MEAN CORPUSCULAR HEMOGLOBIN 27.9 pg (27.0-33.4); MEAN CORPUSCULAR HGB CONC 33.2 g/dL (32.0-36.0); MEAN CORPUSCULAR VOLUME 84 fl (80-97); MONOCYTES % (AUTO) 5.1 % (3-13); PLATELET COUNT 265 10^3/uL (150-450); RED CELL DISTRIBUTION WIDTH 14.9 % (11.5-14.0); SEGMENTED NEUTROPHILS % (AUTO) 73.6 % (42-78); TOTAL CELLS COUNTED % (AUTO) 100 %; WHITE BLOOD COUNT 9.4 10^3/uL (4.0-10.5)
--- NOTE | 2017-09-26 17:40 | RADIOLOGY REPORT (SQ) ---
EXAM DESCRIPTION: CHEST SINGLE VIEW COMPLETED DATE/TIME: 09/26/2017 5:24 pm REASON FOR STUDY: cp COMPARISON: 06/05/2016 EXAM PARAMETERS: NUMBER OF VIEWS: One view. TECHNIQUE: Single frontal radiographic view of the chest acquired. RADIATION DOSE: NA LIMITATIONS: None. FINDINGS: LUNGS AND PLEURA: No opacities, masses or pneumothorax. No pleural effusion. MEDIASTINUM AND HILAR STRUCTURES: No masses. Contour normal. HEART AND VASCULAR STRUCTURES: Heart normal in size. Normal vasculature. BONES: No acute findings. HARDWARE: None in the chest. OTHER: No other significant finding. IMPRESSION: NO ACUTE RADIOGRAPHIC FINDING IN THE CHEST. TECHNICAL DOCUMENTATION: JOB ID: [id number] [employer]- All Rights Reserved Reading location - IP/workstation name: [email or web address]
[2017-09-26 17:41] LABS: ALANINE AMINOTRANSFERASE 46 U/L (9-52); ALBUMIN 4.3 g/dL (3.5-5.0); ALKALINE PHOSPHATASE 116 U/L (38-126); ANION GAP 13 (5-19); ASPARTATE AMINO TRANSFERASE 48 U/L (14-36); BILIRUBIN,DIRECT 0.3 mg/dL (0.0-0.4); BILIRUBIN,TOTAL 0.3 mg/dL (0.2-1.3); BLOOD UREA NITROGEN 19 mg/dL (7-20); CALCIUM 9.9 mg/dL (8.4-10.2); CARBON DIOXIDE 24 mmol/L (22-30); CHLORIDE 103 mmol/L (98-107); CREATINE KINASE 253 U/L (30-135); GLUCOSE 121 mg/dL (75-110); POTASSIUM 4.2 mmol/L (3.6-5.0); SODIUM 140.3 mmol/L (137-145)
[2017-09-26 17:54] LABS: CREATINE KINASE MB 12.6 ng/mL (<4.55)
[2017-09-26 17:59] LABS: TROPONIN I 0.765 ng/mL
[2017-09-26] MEDS ORDERED: HEPARIN SOD (PORCINE) 1,000 UNIT/ML 10 ML VIAL IV ONE (18:09)
[2017-09-26] MEDS ORDERED: HEPARIN SODIUM,PORCINE/D5W 25,000 UNIT/250 ML RTUINJ IV PRN (18:09)
--- NOTE | 2017-09-26 18:25 | ER Document Report ---
ED General - General Chief Complaint: Chest Pain Stated Complaint: CHEST PAIN Time Seen by Provider: 09/26/17 17:03 Mode of Arrival: Ambulatory Information source: Patient Notes: 62-year-old female history of hypertension hyperlipidemia presents with complaints of intermittent chest pain. Patient notes she had one episode this morning lasted approximately 30 minutes and then had another episode in the afternoon. Patient currently is pain-free denies any fevers or chills denies any shortness of breath difficulty breathing notes the pain does radiate down her left arm TRAVEL OUTSIDE OF THE [place] IN LAST 30 DAYS: No - HPI Onset: This morning Onset/Duration: Sudden Quality of pain: Pressure Severity: Mild Pain Level: 1 Associated symptoms: Chest pain Exacerbated by: Denies Relieved by: Denies Similar symptoms previously: No Recently seen / treated by doctor: No - Related Data Allergies/Adverse Reactions: No Known Allergies Allergy (Verified 09/26/17 16:04) Home Medications: synthroid, ipratropium, flonase, bupropion, metoporlol, amlodpine, valsartan, nexium, nitro, trazadone. Past Medical History - Social History Smoking Status: Never Smoker Cigarette use (# per day): No Chew tobacco use (# tins/day): No Smoking Education Provided: No Drug Abuse: None Family History: Reviewed & Not Pertinent, CAD Patient has suicidal ideation: No Patient has homicidal ideation: No - Past Medical History Cardiac Medical History: Reports: Hx Hypertension Renal/ Medical History: Denies: Hx Peritoneal Dialysis GI Medical History: Reports: Hx Gastroesophageal Reflux Disease Psychiatric Medical History: Reports: Hx Depression Past Surgical History: Reports: Hx Orthopedic Surgery - R hand and arm - Immunizations Hx Diphtheria, Pertussis, Tetanus Vaccination: No Review of Systems - Review of Systems Notes: REVIEW OF SYSTEMS: CONSTITUTIONAL : Denies fever, chills, or sweats. Denies recent illness. EENT: Denies eye, ear, throat, or mouth pain or symptoms. Denies nasal or sinus congestion or discharge. Denies throat, tongue, or mouth swelling or difficulty swallowing. CARDIOVASCULAR: admits to chest pain GASTROINTESTINAL: Denies abdominal pain or distention. Denies nausea, vomiting , or diarrhea. Denies blood in vomitus, stools, or per rectum. Denies black, tarry stools. Denies constipation. GENITOURINARY: Denies difficulty urinating, painful urination, burning, frequency, blood in urine, or discharge. FEMALE GENITOURINARY: Denies vaginal bleeding, heavy or abnormal periods, irregular periods. Denies vaginal discharge or odor. MUSCULOSKELETAL: Denies back or neck pain or stiffness. Denies joint pain or swelling. SKIN: Denies rash, lesions or sores. HEMATOLOGIC : Denies easy bruising or bleeding. LYMPHATIC: Denies swollen, enlarged glands. NEUROLOGICAL: Denies confusion or altered mental status. Denies passing out or loss of consciousness. Denies dizziness or lightheadedness. Denies headache. Denies weakness or paralysis or loss of use of either side. Denies problems with gait or speech. Denies sensory loss, numbness, or tingling. Denies seizures. PSYCHIATRIC: Denies anxiety or stress. Denies depression, suicidal ideation, or homicidal ideation. ALL OTHER SYSTEMS REVIEWED AND NEGATIVE. PHYSICAL EXAMINATION: GENERAL: Well-appearing, well-nourished and in no acute distress. HEAD: Atraumatic, normocephalic. EYES: Pupils equal round and reactive to light, extraocular movements intact, conjunctiva are normal. ENT: Nares patent, oropharynx clear without exudates. Moist mucous membranes. NECK: Normal range of motion, supple without lymphadenopathy LUNGS: Breath sounds clear to auscultation bilaterally and equal. No wheezes rales or rhonchi. HEART: Regular rate and rhythm without murmurs ABDOMEN: Soft, nontender, nondistended abdomen. No guarding, no rebound. No masses appreciated. Female : deferred Musculoskeletal: Normal range of motion, no pitting or edema. No cyanosis. NEUROLOGICAL: Cranial nerves grossly intact. Normal speech, normal gait. Normal sensory, motor exams PSYCH: Normal mood, normal affect. SKIN: Warm, Dry, normal turgor, no rashes or lesions noted. Dictation was performed using [employer] voice recognition software Physical Exam - Vital signs Vitals: Temp Pulse Resp BP Pulse Ox 98.0 F 90 18 145/85 H 97 09/26/17 16:16 09/26/17 16:16 09/26/17 16:16 09/26/17 16:16 09/26/17 16:16 Course - Re-evaluation Re-evalutation: 09/26/17 18:24 heparin started, vidant transfer paged Dr cervantes protein purification scientist, no beds till morning 09/26/17 18:27 [facility] paged 09/26/17 19:11 Patient has been accepted by [facility], spoke with family they want to take the patient back to [place], explained that taking someone who appears to be having a heart attack on the [address] is a very poor idea 09/26/17 21:11 Recieved call from [facility], pt accepted on behalf of Dr Sheppard with room assignement 09/26/17 22:33 Patient's troponin has elevated to 8.91 patient is currently chest pain-free - Vital Signs Vital signs: Temp Pulse Resp BP Pulse Ox 98.0 F 90 14 132/92 H 95 09/26/17 16:16 09/26/17 16:16 09/26/17 22:01 09/26/17 22:01 09/26/17 22:04 - Laboratory Result Diagrams: 09/26/17 17:04 09/26/17 17:04 Laboratory results interpreted by me: 09/26/17 09/26/17 09/26/17 17:04 17:04 17:04 RDW 14.9 H Glucose 121 H AST 48 H Creatine Kinase 253 H CK-MB (CK-2) 12.60 H - Diagnostic Test Radiology reviewed: Image reviewed - chest 2 view ntoes no acut eabnormality, Reports reviewed Critical Care Note - Critical Care Note Total time excluding time spent on procedures (mins): 50 Comments: 50 minutes of critical care time spent in direct contact evaluating and reevaluating the patient, treating symptoms, reviewing labs and studies and speaking with family and consultants excluding any procedures Discharge - Discharge Clinical Impression: NSTEMI (non-ST elevated myocardial infarction) Condition: Fair Disposition: [facility] [employer] Referrals: SHARRI BAEZA MD [Primary Care Provider] - Follow up as needed
[2017-09-26 19:05] LABS: INTERNATIONAL RATION (INR) 0.92; PROTHROMBIN TIME 12.8 SEC (11.4-15.4)
[2017-09-26 19:06] LABS: PARTIAL THROMBOPLASTIN TIME 33.3 SEC (23.5-35.8)
[2017-09-26] MEDS ORDERED: ACETAMINOPHEN 325 MG TABLET PO ONE (19:35)
[2017-09-26] MEDS ORDERED: HEPARIN SOD (PORCINE) 1,000 UNIT/ML 10 ML VIAL IV PRN (21:11)
--- NOTE | 2017-09-26 22:43 | EKG REPORT ---
SEVERITY:- NORMAL ECG - SINUS RHYTHM : Confirmed by: Meliton Jean 26-Sep-2017 19:42:30
[2017-09-26 23:14] VITALS: BP 130/87
== END 2017-09-26 22:50 | disposition short-term general hospital (02) ==
LOC: ER 15:58
DX: R07.9 Chest pain, unspecified (principal); I10 Essential (primary) hypertension
CPT/HCPCS: 93005; 99291; 96365; 96366; 36415; 82553; 82550; 85025; 85610; 85730; 80053; 84484; 71045; 93010; J3490; J1644 ×2